=== PATIENT | female | born 1935 | race Caucasian/White ===

== ENCOUNTER 2017-08-08 08:00 | Outpatient (CLI) | payer MEDICARE, BC | END 2017-08-08 08:01 | disposition home or self-care (01) | LOC: BICULT 08:00 | PROVIDERS: ATTEND Internal Medicine | DX: G45.9 Transient cerebral ischemic attack, unspecified (principal); M25.552 Pain in left hip; M16.12 Unilateral primary osteoarthritis, left hip ==

== ENCOUNTER 2017-09-25 13:48 | Outpatient (CLI) | payer MEDICARE, BC ==
--- NOTE | 2017-09-25 14:56 | MRI ---
MRI BRAIN WITHOUT CONTRAST: Date: 09/25/17 HISTORY: TIA. FINDINGS: No restricted diffusion is seen. No evidence of infarct, hemorrhage, midline shift, or abnormal extra -axial fluid collections are seen. The ventricular size is appropriate and the basilar cisterns are p atent. The visualized paranasal sinuses are well aerated. There is a small amount of fluid in the rig ht mastoid air cells. IMPRESSION: No evidence of acute intracranial process. POS: [facility]
[2017-09-25] MEDS ORDERED: Iopamidol 370 76% 100 ML VIAL ONE (16:56)
--- NOTE | 2017-09-25 18:25 | CT ---
EXAM: CT ANGIOGRAM OF THE NECK 09/25/17 HISTORY: Possible transient ischemic attack. COMPARISON: None. TECHNIQUE: CT angiogram of the neck is performed in the axial plane. Sagittal and coronal three dimensional refo rmatted images are submitted for interpretation. FINDINGS: Visualized brain parenchyma is unremarkable. Bilateral ocular lens implants are noted. Both globes ar e intact. Retrobulbar fat is preserved. Symmetric attenuation of the visualized ocular rectus muscles . Adequate aeration of the sinuses and mastoid air cells. Aerodigestive tract is patent. No mucosal abnormality. Limited evaluation of the oral cavity due to d ental amalgam artifact. Midline fatty raphae of the tongue is preserved. There is mild fullness of th e lingual tonsils. Correlate for lingual tonsillar hypertrophy. Direct visualization is recommended. Epiglottis has a normal caliber. Pre-epiglottic fat is preserved. No prevertebral soft tissue swellin g. Cervical spine vertebral body height is maintained. No fracture. There is grade I anterolisthesis of C4 upon C5, grade I retrolisthesis of C5 upon C6. Cervical spine vertebral body height is maintained. No fracture. There are varying degrees of central canal stenosis and foraminal narrowing on the basi s of degenerative change. There is symmetric attenuation of the sternocleidomastoid muscles. Symmetric attenuation of the parot id and submandibular glands. No evidence of lymphadenopathy by size criteria. Upper mediastinum is unremarkable. There are focal areas of ground glass opacification in both upper lobes, nonspecific. There is an ill-defined slightly spiculated opacity on the posterior aspect of th e left upper lobe, measuring [address] ANGIOGRAM: There is atherosclerosis of the aortic arch. RIGHT CAROTID: There is atherosclerosis with mild to moderate narrowing of the origin of the right carotid artery. T he innominate artery has appropriate enhancement and luminal diameter. The right common carotid arter y, carotid bifurcation and internal carotid artery have appropriate enhancement and luminal diameter. There is a small amount of calcified plaque in the right carotid bifurcation. No evidence of signifi cant stenosis based upon NASCET criteria. LEFT CAROTID: There is atherosclerotic disease with what appears to be short segment severe narrowing at the origin of the left carotid artery. The left common carotid artery has appropriate enhancement and luminal d iameter. There are calcified and noncalcified plaque in the left carotid bifurcation. No evidence of significant stenosis based upon NASCET criteria. The proximal mid and distal left internal carotid chapman ve appropriate enhancement and luminal diameter. Right vertebral artery is unremarkable. There is short segment moderate to severe stenosis involving the proximal left subclavian artery. If there is concern for steal phenomenon, consider MR angiogram of the neck. IMPRESSION: 1. Atherosclerosis without evidence of hemodynamically significant stenosis based upon NASCET cr iteria in both carotid arteries. 2. Atherosclerosis involving the proximal left subclavian artery. If there is concern for steal phenomenon consider MR angiogram of the neck with and without contrast. 3. Spiculated ground glass nodule in the left upper lobe. A complete chest CT is recommended. Code T POS: [facility]
== END 2017-09-25 13:49 | disposition home or self-care (01) ==
LOC: CT 13:48
PROVIDERS: ATTEND Psychiatry & Neurology Neurology
DX: G45.9 Transient cerebral ischemic attack, unspecified (principal); I65.23 Occlusion and stenosis of bilateral carotid arteries; I70.8 Atherosclerosis of other arteries; R91.1 Solitary pulmonary nodule
CPT/HCPCS: 70498; 70551

== ENCOUNTER 2017-10-15 08:45 | Inpatient (IN) | payer MEDICARE, BC ==
[2017-10-22 09:00] VITALS: BMI 26.9
[2017-10-28] MEDS ORDERED: traMADol HCl 50 MG TAB PO PRN ×3 (09:21→11:30)
[2017-10-28] MEDS ORDERED: Acetaminophen 325 MG TAB PO PRN (09:21)
[2017-10-28] MEDS ORDERED: Ondansetron HCl/PF 4 MG/2 ML Vial IVP PRN ×3 (09:21→13:29)
[2017-10-28] MEDS ORDERED: Tranexamic Acid 1,000 MG in Sodium Chloride 0.9% 100 ML IVPB SCH ×2 (09:30→14:30)
[2017-10-28] MEDS ORDERED: Acetaminophen 1,000 MG in Premix Bag 1 BAG IVPB SCH (09:30)
[2017-10-28] MEDS ORDERED: CEFAZOLIN/Water 2 GM/20 ML SYRINGE ONE (10:30)
[2017-10-28] MEDS ORDERED: Midazolam HCl 2 mg/2 ml Vial ONE (11:12)
[2017-10-28] MEDS ORDERED: Morphine 2 MG/ML SYRINGE ONE (11:13)
[2017-10-28] MEDS ORDERED: fentaNYL Citrate/PF 1,250 MCG, Bupivacaine 25 ML in Sodium Chloride 0.9% 250 ML 200 ML EPIDURAL SCH (11:30)
[2017-10-28] MEDS ORDERED: Hydrocerin (Eucerin) Cream 120 gm Jar TOP PRN (11:30)
[2017-10-28] MEDS ORDERED: Promethazine HCl 25 MG/ML VIAL IM PRN ×2 (11:30→13:29)
[2017-10-28] MEDS ORDERED: Zolpidem Tartrate 5 MG TAB PO PRN (11:30)
[2017-10-28] MEDS ORDERED: diphenhydrAMINE 50 MG/ML VIAL IVP PRN (11:30)
[2017-10-28] MEDS ORDERED: Promethazine HCl 25 MG SUPP PR PRN (11:30)
[2017-10-28] MEDS ORDERED: Naloxone HCl 0.4 mg/ml Vial IVP PRN (11:30)
[2017-10-28] MEDS ORDERED: Naloxone HCl 0.4 mg/ml Vial IV PRN (11:30)
[2017-10-28] MEDS ORDERED: diphenhydrAMINE 50 MG/ML VIAL IM PRN (11:30)
[2017-10-28] MEDS ORDERED: diphenhydrAMINE 25 MG CAP PO PRN (11:30)
[2017-10-28] MEDS ORDERED: Bupivacaine 0.25% 10 ML VIAL EPIDURAL PRN (11:30)
[2017-10-28] MEDS ORDERED: HYDROcodone/Acetaminophen 5/325 mg Tablet PO PRN (11:30)
[2017-10-28] MEDS ORDERED: Ketorolac Tromethamine 30 MG/ML VIAL IVP PRN (11:30)
[2017-10-28] MEDS ORDERED: Neomycin-Polymyxin 1 ML AMP ONE (12:04)
[2017-10-28] MEDS ORDERED: Bupivacaine/Epinephrine 0.25% 30 ML VIAL ONE (12:19)
[2017-10-28] MEDS ORDERED: Promethazine HCl 25 MG/ML VIAL SLOW IVP PRN (13:29)
[2017-10-28] MEDS ORDERED: Acetaminophen 500 MG TAB PO PRN (14:29)
[2017-10-28] MEDS ORDERED: Morphine 4 MG/ML VIAL ONE (14:49)
--- NOTE | 2017-10-28 15:19 | RAD ---
PORTABLE AP PELVIS: Date: 10-28-17 Comparison: None. History: Post left hip prosthesis. FINDINGS: Left total hip prosthesis is noted in place. There are post-surgical changes related to placement of a left total hip prosthesis. Subcutaneous emphysema is seen about the left hip. No fracture or disloc ation is seen. IMPRESSION: Evidence of right total hip prosthesis with post-surgical changes related to placement of left total hip prosthesis. POS: [facility]
[2017-10-28] MEDS ORDERED: PHENYLEPHRINE-NS 100 MCG/ML 10 ML SYRINGE ONE ×2 (15:21→16:10)
[2017-10-28] MEDS ORDERED: Propofol 200 MG/20 ML VIAL ONE (15:21)
[2017-10-28] MEDS ORDERED: Lidocaine 1% PF 5 ML VIAL ONE (15:21)
[2017-10-28] MEDS ORDERED: Ondansetron HCl/PF 4 MG/2 ML Vial ONE (15:21)
--- NOTE | 2017-10-28 15:58 | RAD ---
TWO VIEWS LEFT HIP: History: Left hip arthroplasty. Comparison: 10-28-17 at 1:23 p.m. FINDINGS: Two views of the left hip demonstrate a left hip arthroplasty. Post-operative changes are noted. IMPRESSION: Post-surgical changes. POS: [facility]
[2017-10-28] MEDS ORDERED: CEFAZOLIN/Water 2 GM/20 ML SYRINGE SLOW IVP SCH (16:00)
[2017-10-28] MEDS ORDERED: PHENYLEPHRINE-NS 100 MCG/ML 10 ML SYRINGE IVP PRN (16:36)
[2017-10-28] MEDS: Sodium Chloride 0.9% 1,000 ML IV SCH (20:30)
[2017-10-28] MEDS: CEFAZOLIN/Water 2 GM/20 ML SYRINGE SLOW IVP SCH (21:00)
[2017-10-28] MEDS: Nitrofurantoin Monohyd/M-Cryst 100 MG CAP PO SCH (21:01)
[2017-10-28] MEDS: Aspirin 325 MG TAB PO SCH (21:34)
[2017-10-29] MEDS: HYDROcodone/Acetaminophen 5/325 mg Tablet PO PRN ×3 (02:00→20:38)
[2017-10-29] MEDS: Sodium Chloride 0.9% 1,000 ML IV SCH ×2 (04:37→16:44)
[2017-10-29] MEDS: CEFAZOLIN/Water 2 GM/20 ML SYRINGE SLOW IVP SCH (05:00)
[2017-10-29 05:59] LABS: Hemoglobin 9.9 g/dL (12.0-16.0); Mean Corpuscular HGB CONC 33.5 g/dL (32.0-36.0); Mean Corpuscular Hemoglobin 31.6 pg (27.0-31.0); Mean Corpuscular Volume 94.3 fl (81.0-99.0); Mean Platelet Volume 6.3 fL (7.4-10.4); Platelet Count 296 thou/uL (130-400); RBC Distribution Width 11.9 % (11.5-14.5); Red Blood Cell (RBC) Count 3.13 mill/uL (4.20-5.40); White Blood Cell (WBC) Count 10.7 thou/uL (4.8-10.8)
[2017-10-29] MEDS: Ferrous Gluconate 324 MG TAB PO SCH ×2 (08:12→20:38)
[2017-10-29] MEDS: Multivitamin W/ Minerals 1 TAB PO SCH (08:12)
[2017-10-29] MEDS: Calcium Carbonate + Vit D 1 TAB PO SCH (08:12)
[2017-10-29] MEDS: Nitrofurantoin Monohyd/M-Cryst 100 MG CAP PO SCH (08:12)
[2017-10-29] MEDS: Metamucil PACK PO SCH (08:13)
[2017-10-29] MEDS: Senokot S 8.6-50 MG TAB PO SCH ×2 (08:13→20:38)
[2017-10-29] MEDS: Aspirin 325 MG TAB PO SCH ×2 (08:13→20:38)
[2017-10-29] MEDS ORDERED: Non-Formulary Item 1 EACH (Multivitamin [Multi-Vitamin Daily] 1 TABLET) PO SCH (09:00)
[2017-10-29] MEDS ORDERED: Cranberry [Cranberry] 400 MG PO SCH (09:00)
[2017-10-29] MEDS ORDERED: hydrALAZINE 20 MG/ML VIAL SLOW IVP PRN (09:58)
[2017-10-29] MEDS ORDERED: cloNIDine 0.1 MG TAB PO PRN (09:58)
[2017-10-29] MEDS ORDERED: Famotidine 20 MG TAB PO SCH (10:45)
--- NOTE | 2017-10-29 11:10 | OP ---
DATE OF PROCEDURE: 10/28/2017 PREOPERATIVE DIAGNOSIS: Left hip osteoarthrosis. POSTOPERATIVE DIAGNOSIS: Left hip osteoarthrosis. PROCEDURE PERFORMED: Left total hip arthroplasty. ANESTHESIA: General. SURGEON: Lito Ríos M.D. COMPLICATIONS: None. CONDITION: Good. ESTIMATED BLOOD LOSS: 300 mL. DRAINS: None. TOURNIQUET: None. TECHNIQUE: Consent was obtained. The patient was taken to the operating room and placed in supine p osition. After adequate general anesthesia had been achieved, the patient's left hip and lower extre mity were positioned and prepped and draped in the sterile fashion. The patient had an axillary roll and hip positioner left hip had minor restriction of motion. The limited posterolateral approach wa s obtained taken down to subcutaneous tissue exposing gluteal fascia. This was split longitudinally. Piriformis was identified the insertion and released. A posterior capsular incision was made and t he hip dislocated without difficulty. Appropriate resection was performed and the femur prepared wit h sequential hand reamers and broaches up to a size 3. The acetabulum was exposed. Labral tissue wa s resected in an accessory lateral portal and was established with a cannula. Sequential reaming was started at 47 mm, was taken up to 52 mm and a 52 mm Dynasty cup was placed in appropriate position a nd alignment and with single superior screw, excellent purchase was achieved. It was then trialed wi th the 15 degree liner, the short neck and standard 36 head. The patient had excellent range of yousuf on, good stability, no evidence of impingement, full flexion, extension and abduction internal rotati on stability. Radiographs showed acceptable position and alignment of the implants and the 15-degree liner was then placed, the size 3 Profemur Z stem inserted and again trialed with the 36 standard head and 36 was c hosen after drying the tapers and impacted. Again, range of motion, stability, and leg lengths clini sury equal. After copious irrigation, the posterior capsule was repaired with #2 Mersilene along wi th the piriformis. The gluteal fascia and IT band was closed with some #2 Mersilene, #1 Vicryl, subc u with 0 and 2-0 Vicryl, and the skin with diomedes. Sterile bulky dressing applied and patient taken to recovery. Prognosis is good. Begin rehab protocol.
--- NOTE | 2017-10-29 15:07 | PDOC.PN ---
- Subjective Encounter Start Date: 10/29/17 Encounter Start Time: 15:04 Subjective: s/p Left Total hip arthroplasty -: denies any pain/discomfort.no N/V/D.no CP/SOB -: no Fever/chills - Objective MAR Reviewed: Yes Vital Signs & Weight: Vital Signs (12 hours) Temp Pulse Resp BP Pulse Ox 10/29/17 11:32 97.9 F 99 16 106/64 95 10/29/17 08:15 98.0 F 99 16 145/64 H 95 10/29/17 08:00 98.0 F 99 16 95 10/29/17 05:00 98.4 F 111 H 16 143/59 H Weight Admit Weight 157 lb Weight 157 lb I&O: 10/28/17 10/29/17 10/30/17 06:59 06:59 06:59 Intake Total 2248 250 Output Total 700 Balance 1548 250 Result Diagrams: 10/29/17 05:15 Additional Labs: Laboratory Tests 10/22/17 10/22/17 10/29/17 09:25 09:25 05:15 Hgb 12.5 9.9 L Sodium 132 L Potassium 4.4 Chloride 98 Carbon Dioxide 26 Anion Gap 12 BUN 19 Creatinine 0.82 Glucose 90 Calcium 9.8 Phys Exam - Physical Examination Constitutional: NAD HEENT: PERRLA, moist MMs, sclera anicteric, oral pharynx no lesions Neck: no nodes, no JVD, supple, full ROM Respiratory: no wheezing, no rales, no rhonchi, clear to auscultation bilateral Cardiovascular: RRR, no significant murmur, no rub, gallop Gastrointestinal: soft, non-tender, no distention, positive bowel sounds Musculoskeletal: no edema, pulses present Neurological: non-focal, normal sensation, moves all 4 limbs Lymphatic: no nodes Psychiatric: normal affect, A&O x 3 Skin: no rash Dx/Plan (1) HTN (hypertension) Code(s): I10 - ESSENTIAL (PRIMARY) HYPERTENSION Status: Acute (2) S/P total hip arthroplasty Code(s): Z96.649 - PRESENCE OF UNSPECIFIED ARTIFICIAL HIP JOINT Status: Acute (3) Carotid arterial disease Code(s): I77.9 - DISORDER OF ARTERIES AND ARTERIOLES, UNSPECIFIED Status: Acute Comment: Daily ASA (4) Postoperative anemia Code(s): D64.9 - ANEMIA, UNSPECIFIED Status: Acute - Plan PT/OT, out of bed/ambulate, DVT proph w/SCDs cont ASA BID for DVt prophylaxis. Add pepcid for GI prophylaxis. -: ont Lisinopril/HCTZ. BP controlled fairly well. Add Prn anti hypertensives -: Pt is done w Macrodantin.will stop & recheck UA -: AM labs. Monitor for post-op anemia * . Review of Systems - Review of Systems Constitutional: negative: fever, chills, sweats, weakness, malaise, other Eyes: negative: Pain, Vision Change, Conjunctivae Inflammation, Eyelid Inflammation, Redness, Other ENT: negative: Ear Pain, Ear Discharge, Nose Pain, Nose Discharge, Nose Congestion, Mouth Pain, Mouth Swelling, Throat Pain, Throat Swelling, Other Respiratory: negative: Cough, Dry, Shortness of Breath, Hemoptysis, SOB with Excertion, Pleuritic Pain, Sputum, Wheezing Cardiovascular: negative: chest pain, palpitations, orthopnea, paroxysmal nocturnal dyspnea, edema, light headedness, other Gastrointestinal: negative: Nausea, Vomiting, Abdominal Pain, Diarrhea, Constipation, Melena, Hematochezia, Other Genitourinary: negative: Dysuria, Frequency, Incontinence, Hematuria, Retention , Other Musculoskeletal: negative: Neck Pain, Shoulder Pain, Arm Pain, Back Pain, Hand Pain, Leg Pain, Foot Pain, Other Skin: negative: Rash, Lesions, Omari, Bruising, Other Neurological: negative: Weakness, Numbness, Incoordination, Change in Speech, Confusion, Seizures, Other - Medications/Allergies Allergies/Adverse Reactions: Allergies Allergy/AdvReac Type Severity Reaction Status Date / Time codeine Allergy "feel Verified 10/29/17 03:59 drunk" Medications: Current Medications Acetaminophen (Tylenol) 650 mg PO Q4H PRN PRN Reason: HOLLY/ T > 101F; Mild Pain (1-3) Acetaminophen (Tylenol) 1,000 mg PO Q6HR PRN PRN Reason: Pain Hydrocodone Bitart/Acetaminophen ([place] 5/325) 1 tab PO Q4H PRN PRN Reason: Mild Pain 0-3 Hydrocodone Bitart/Acetaminophen ([place] 5/325) 2 tab PO Q4H PRN PRN Reason: For Moderate Pain 4-6 Last Admin: 10/29/17 06:05 Dose: 2 tab Aspirin (Aspirin) 325 mg PO BID [facility] Last Admin: 10/29/17 08:13 Dose: 325 mg Calcium/Vitamin D (Caltrate 600 + Vit D) 1 tab PO DAILY [facility] Last Admin: 10/29/17 08:12 Dose: 1 tab Clonidine (Catapres) 0.1 mg PO Q4H PRN PRN Reason: SBP>160 Diclofenac Sodium (Voltaren) 100 mg PO QAM [facility] Last Admin: 10/29/17 08:12 Dose: 100 mg Diphenhydramine HCl (Benadryl) 25 mg PO Q3H PRN PRN Reason: Itching Diphenhydramine HCl (Benadryl) 25 mg IM Q3H PRN PRN Reason: Itching Diphenhydramine HCl (Benadryl) 25 mg IVP Q3H PRN PRN Reason: Itching Emollient Cream (Hydrocerin Cream) 0 gm TOP PRN PRN PRN Reason: Itching Famotidine (Pepcid) 20 mg PO BID [facility] Ferrous Gluconate (Fergon) 324 mg PO BID [facility] Last Admin: 10/29/17 08:12 Dose: 324 mg Lisinopril/HCTZ (Prinizide 10-12.5) 1 tab PO [facility] Hydralazine HCl (Apresoline) 10 mg SLOW IVP Q4H PRN PRN Reason: SBP>170 Sodium Chloride (Normal Saline 0.9%) 1,000 mls @ 100 mls/hr IV .Q10H [facility] Last Admin: 10/29/17 04:37 Dose: Not Given Fentanyl Citrate 1,250 mcg/Bupivacaine HCl 25 ml/ Sodium Chloride 250 mls @ 0 mls/hr EPIDURAL INF [facility] PRN Reason: As Directed Iron/Minerals/Multivitamins (Theragran M) 1 tab PO DAILY [facility] Last Admin: 10/29/17 08:12 Dose: 1 tab Ketorolac Tromethamine (Toradol) 15 mg IVP Q6H PRN PRN Reason: Moderate Pain (4-6) Stop: 10/31/17 11:31 Naloxone HCl (Narcan) 0.2 mg IV Q5MIN PRN PRN Reason: RR <=8 OR OBTUNDED/UNAROUSABLE Naloxone HCl (Narcan) 0.1 mg IVP Q15MIN PRN PRN Reason: URINARY RETENTION Ondansetron HCl (Zofran) 4 mg IVP Q6H PRN PRN Reason: Nausea/Vomiting Cranberry [Cranberry (] 400 Mg) 0 each PO DAILY [facility] Phenylephrine HCl (Phenylephrine-Ns) 100 mcg IVP Q10MIN PRN PRN Reason: SBP Less Than 100 Promethazine HCl (Phenergan) 12.5 mg IM Q4H PRN PRN Reason: Nausea Promethazine HCl (Phenergan Suppository) 25 mg PA Q4H PRN PRN Reason: Nausea/Vomiting Psyllium Hydrophilic Mucilloid (Metamucil) 1 pk PO DAILY [facility] Last Admin: 10/29/17 08:13 Dose: 1 pk Senna/Docusate Sodium (Senokot S) 2 tab PO BID [facility] Last Admin: 10/29/17 08:13 Dose: 2 tab Sodium Chloride (Flush - Normal Saline) 10 ml IVF PRN PRN PRN Reason: Saline Flush Tramadol HCl (Ultram) 50 mg PO Q6H PRN PRN Reason: Mild Pain 1-3 Tramadol HCl (Ultram) 100 mg PO Q6H PRN PRN Reason: Moderate Pain 4-6 Zolpidem Tartrate (Ambien) 5 mg PO HSPRN PRN PRN Reason: Insomnia
[2017-10-29] MEDS: Lisinopril/Hydrochlorothiazide 10 mg/12.5 mg Tablet PO SCH (16:44)
[2017-10-29] MEDS: Aspirin 81 mg Enteric Coated Tablet PO SCH (17:41)
[2017-10-29 18:42] LABS: Bilirubin Negative (Negative); Blood, Urine Trace (Negative); Clarity CLEAR (Clear); Glucose, Urine (Dipstick) 250 mg/dL (Negative); Leukocyte Negative (Negative); Nitrite Negative (Negative); Protein, Urine (Dipstick) Negative (Neg-Trace); Specific Gravity, Urine 1.019 (1.002-1.036); Urobilinogen 0.2 mg/dL (0.2-1.0); pH, Urine 6.5 (5.0-9.0)
[2017-10-29 18:43] LABS: Bacteria/HPF Rare-Few HPF (None Seen); Hyaline Casts/LPF 0-3 HYALINE CAST LPF (0-3 Hyaline); Squamous Epithelial 0-3 HPF (0-3)
[2017-10-29] MEDS: Famotidine 20 MG TAB PO SCH (20:38)
[2017-10-30] MEDS: Sodium Chloride 0.9% 1,000 ML IV SCH (01:58)
[2017-10-30 04:24] LABS: #Eosinphils 0.5 thou/uL (0.0-0.7); #Lymphocytes 1.5 thou/uL (1.20-3.40); #Monocytes 0.9 thou/uL (0.11-0.59); #Neutrophils 7.3 thou/uL (1.40-6.50); %Basophils 0.3 % (0.0-1.0); %Lymphocytes 14.7 % (21.0-51.0); %Monocytes 8.4 % (0.0-10.0); %Neutrophils 71.6 % (42.0-75.0); Hemoglobin 9.1 g/dL (12.0-16.0); Mean Corpuscular HGB CONC 33.8 g/dL (32.0-36.0); Mean Corpuscular Hemoglobin 31.8 pg (27.0-31.0); Mean Corpuscular Volume 94.1 fl (81.0-99.0); Mean Platelet Volume 6.7 fL (7.4-10.4); Platelet Count 262 thou/uL (130-400); Red Blood Cell (RBC) Count 2.87 mill/uL (4.20-5.40); White Blood Cell (WBC) Count 10.1 thou/uL (4.8-10.8)
[2017-10-30 04:32] LABS: ALT (SGPT) 16 U/L (8-55); AST (SGOT) 23 U/L (5-34); Albumin 3.1 g/dL (3.4-4.8); Alkaline Phosphatase 73 U/L (40-150); Anion Gap 8 mmol/L (10-20); BUN (Urea Nitrogen) 16 mg/dL (9.8-20.1); Bilirubin, Total 0.3 mg/dL (0.2-1.2); Calc. Creatinine Clearance 65 mL/min (70-130); Calcium 8.6 mg/dL (7.8-10.44); Carbon Dioxide 26 mmol/L (23-31); Chloride 104 mmol/L (98-107); Estimated GFR-MDRD 73; Globulin 2.3 g/dL (2.4-3.5); Glucose 119 mg/dL (83-110); Potassium 3.7 mmol/L (3.5-5.1); Protein, Total 5.4 g/dL (6.0-8.3); Sodium 134 mmol/L (136-145)
[2017-10-30 08:30] VITALS: TEMP 97.9
[2017-10-30] MEDS: Ferrous Gluconate 324 MG TAB PO SCH (08:38)
[2017-10-30] MEDS: Aspirin 325 MG TAB PO SCH (08:38)
[2017-10-30] MEDS: Multivitamin W/ Minerals 1 TAB PO SCH (08:38)
[2017-10-30] MEDS: Metamucil PACK PO SCH (08:39)
[2017-10-30] MEDS: Famotidine 20 MG TAB PO SCH (08:39)
[2017-10-30] MEDS: Senokot S 8.6-50 MG TAB PO SCH (08:39)
[2017-10-30] MEDS: Calcium Carbonate + Vit D 1 TAB PO SCH (08:39)
[2017-10-30] MEDS: Lisinopril/Hydrochlorothiazide 10 mg/12.5 mg Tablet PO SCH (08:39)
[2017-10-30 12:49] VITALS: BP 137/66
== END 2017-10-30 11:48 | disposition home or self-care (01) | DRG 470 ==
LOC: SURG A 10-28 09:18 → SJJU 10-28 18:51
PROVIDERS: ADMIT Orthopaedic Surgery; ATTEND Orthopaedic Surgery
PROC: 0SRB01Z Replacement of Left Hip Joint with Metal Synthetic Substitute, Open Approach (ICD-10-PCS; principal; 2017-10-28)
DX: M16.12 Unilateral primary osteoarthritis, left hip (principal); D64.9 Anemia, unspecified; I10 Essential (primary) hypertension; I77.9 Disorder of arteries and arterioles, unspecified; E78.5 Hyperlipidemia, unspecified; Z86.73 Personal history of transient ischemic attack (TIA), and cerebral infarction without residual deficits; F17.210 Nicotine dependence, cigarettes, uncomplicated
CPT/HCPCS: 36415; 80053; 81003; 81015; 85027; C1776; G8978-GP-CL; G8979-GP-CI; G8987-GO-CJ; G8988-GO-CI; J2001; J2250; J2270; J2405; J2704; J3010; J3490; J7050

== ENCOUNTER 2017-10-22 08:39 | Outpatient (CLI) | payer MEDICARE, BC ==
[2017-10-22 10:53] LABS: Hemoglobin 12.5 g/dL (12.0-16.0); Mean Corpuscular HGB CONC 34.5 g/dL (32.0-36.0); Mean Corpuscular Volume 92.7 fl (81.0-99.0); Mean Platelet Volume 6.4 fL (7.4-10.4); Platelet Count 355 thou/uL (130-400); RBC Distribution Width 11.9 % (11.5-14.5); White Blood Cell (WBC) Count 9.1 thou/uL (4.8-10.8)
[2017-10-22 10:59] LABS: PTT 28.9 SEC (22.9-36.1); Prothrombin Time 13.2 SEC (12.0-14.7)
[2017-10-22 11:14] LABS: Anion Gap 12 mmol/L (10-20); BUN (Urea Nitrogen) 19 mg/dL (9.8-20.1); Calc. Creatinine Clearance 0 mL/min (70-130); Calcium 9.8 mg/dL (7.8-10.44); Carbon Dioxide 26 mmol/L (23-31); Chloride 98 mmol/L (98-107); Estimated GFR-MDRD 67; Glucose 90 mg/dL (83-110); Potassium 4.4 mmol/L (3.5-5.1); Sodium 132 mmol/L (136-145)
== END 2017-10-22 08:40 | disposition home or self-care (01) ==
LOC: LABBT 08:39
PROVIDERS: ATTEND Orthopaedic Surgery
DX: Z01.818 Encounter for other preprocedural examination (principal); M16.12 Unilateral primary osteoarthritis, left hip
CPT/HCPCS: 80048; 85027; 85610; 85730; 86850; 86900; 86901; 87081; 93005; 93010

== ENCOUNTER 2018-01-21 12:51 | Outpatient (CLI) | payer MEDICARE, BC ==
[~2018-01-21 12:51] MED LIST: Iopamidol 370 76% 100 ML VIAL ONE
== END 2018-01-21 12:52 | disposition home or self-care (01) ==
LOC: BICCT 12:51
PROVIDERS: ATTEND Internal Medicine
DX: R91.8 Other nonspecific abnormal finding of lung field (principal); J44.9 Chronic obstructive pulmonary disease, unspecified; K44.9 Diaphragmatic hernia without obstruction or gangrene; I77.1 Stricture of artery; I70.8 Atherosclerosis of other arteries
CPT/HCPCS: 71260; 82565

== ENCOUNTER 2018-01-21 13:24 | Outpatient (CLI) | payer MEDICARE, BC | END 2018-01-21 13:25 | disposition home or self-care (01) | LOC: BICMAMMO 13:24 | PROVIDERS: ATTEND Internal Medicine | DX: Z12.31 Encounter for screening mammogram for malignant neoplasm of breast (principal); Z13.820 Encounter for screening for osteoporosis; R92.1 Mammographic calcification found on diagnostic imaging of breast; Z80.3 Family history of malignant neoplasm of breast; Z85.89 Personal history of malignant neoplasm of other organs and systems | CPT/HCPCS: 77063; 77067; 77080 ==

== ENCOUNTER 2018-04-04 07:24 | Outpatient (CLI) | payer MEDICARE, BC ==
[2018-04-04] MEDS ORDERED: ISOVUE-370 76%-LOCM 1 ML ONE (13:29)
== END 2018-04-04 07:25 | disposition home or self-care (01) ==
LOC: BICCT 07:24
PROVIDERS: ATTEND Internal Medicine Gastroenterology
DX: D64.9 Anemia, unspecified (principal); R10.84 Generalized abdominal pain; R11.2 Nausea with vomiting, unspecified; R19.7 Diarrhea, unspecified; I70.0 Atherosclerosis of aorta; N20.0 Calculus of kidney; M47.896 Other spondylosis, lumbar region; R19.09 Other intra-abdominal and pelvic swelling, mass and lump; Z96.643 Presence of artificial hip joint, bilateral
CPT/HCPCS: 74177

== ENCOUNTER 2019-02-23 10:33 | Outpatient (CLI) | payer MEDICARE, BC ==
--- NOTE | 2019-02-23 11:54 | MMO ---
Bilateral MAMMO Bilat Screen [facility]. CLINICAL HISTORY: Patient is 83 years old and is seen for screening. The patient has the following family history of breast cancer: sister, 60'S. The patient has no personal history of cancer. VIEWS: The views performed were: bilateral craniocaudal with tomosynthesis and bilateral mediolateral oblique with tomosynthesis. FILMS COMPARED: The present examination has been compared to prior imaging studies performed at [facility] on 10/19/2014, 10/28/2015, 10/30/2016 and 01/21/2018. MAMMOGRAM FINDINGS: There are scattered fibroglandular densities. Benign calcifications are noted bilaterally. There is a new mass in the left lower inner breast. In the right breast, there are no suspicious masses, calcifications or areas of architectural distortion. IMPRESSION: FINDING IN THE LEFT BREAST REQUIRES ADDITIONAL EVALUATION. AN ULTRASOUND EXAM IS RECOMMENDED. THE RESULTS OF THIS EXAM WERE SENT TO THE PATIENT. ACR BI-RADS Category 0 - Incomplete: Need additional imaging evaluation. [facility] will notify the patient of the need for additional imaging services. MAMMOGRAPHY NOTE: 1. A negative mammogram report should not delay a biopsy if a dominant of clinically suspicious mass is present. 2. Approximately 10% to 15% of breast cancers are not detected by mammography. 3. Adenosis and dense breasts may obscure an underlying neoplasm. Reported by: GARIMA ANNE MD Electonically Signed: [id number]
--- NOTE | 2019-02-23 13:39 | CT ---
CT CHEST WITH IV CONTRAST: HISTORY: Followup nodule, cough. COMPARISON: 01/21/2018. FINDINGS: The tiny hazy opacity with central scarring in the left apex is stable. The focal area of ground-gla ss opacity in the right upper lobe is also unchanged. Tiny nodules in the anterolateral aspect of the right upper lobe peripherally measuring up to 5 mm re main stable. A focal density in the lateral segment of the lingula is unchanged. No pleural or pericardial effusions are seen. The cystic mass in the right pericardiac region is sta ble. There are degenerative changes in the spine. The small hiatal hernia is stable. There is hydronephrosis of the chest in the visualized portions of the right kidney. IMPRESSION: 1. Stable CT scan of the chest. Followup is recommended in 6 months. 2. A renal ultrasound should be performed. POS: OFF
[2019-02-23] MEDS ORDERED: ISOVUE-370 76%-LOCM 1 ML ONE (13:43)
== END 2019-02-23 10:34 | disposition home or self-care (01) ==
LOC: BICMAMMO 10:33
PROVIDERS: ATTEND Internal Medicine
DX: Z12.31 Encounter for screening mammogram for malignant neoplasm of breast (principal); R93.89 Abnormal findings on diagnostic imaging of other specified body structures; Z80.3 Family history of malignant neoplasm of breast
CPT/HCPCS: 71260; 77063; 77067; Q9966

== ENCOUNTER 2019-03-04 10:52 | Outpatient (CLI) | payer MEDICARE, BC ==
--- NOTE | 2019-03-04 12:21 | ULT ---
LEFT BREAST ULTRASOUND: Date: 03/04/19 HISTORY: Abnormal mammogram. FINDINGS: Sonographic evaluation of the left lower inner breast demonstrates a 7.0 mm cyst at the 8 o'clock pos ition, corresponding to the mammographic abnormality. IMPRESSION: BI-RADS Category 2 - Benign findings. Return to annual mammographic screening. POS: OFF
== END 2019-03-04 10:53 | disposition home or self-care (01) ==
LOC: BICULT 10:52
PROVIDERS: ATTEND Internal Medicine
DX: N63.20 Unspecified lump in the left breast, unspecified quadrant (principal)

== ENCOUNTER 2019-03-25 10:05 | Outpatient (CLI) | payer MEDICARE, BC ==
--- NOTE | 2019-03-25 11:00 | ULT ---
RENAL ULTRASOUND: INDICATION: Right hydronephrosis. FINDINGS: There is moderate right hydronephrosis. Right kidney is measured at 10 cm length. The left kidney measures 10 cm length is unremarkable. The bladder is mildly distended. There is bladder wall thickening. There is an echogenic calculus i n the base of the bladder on the right. Ureteral jets were visualized with ultrasound. IMPRESSION: Moderate to severe right hydronephrosis. Echogenic focus in the bladder suggested bladder calculus. Bladder wall thickening. POS: [facility]
== END 2019-03-25 10:06 | disposition home or self-care (01) ==
LOC: BICULT 10:05
PROVIDERS: ATTEND Internal Medicine
DX: N13.30 Unspecified hydronephrosis (principal); N32.89 Other specified disorders of bladder
CPT/HCPCS: 76770

== ENCOUNTER 2019-04-28 08:21 | Outpatient (CLI) | payer MEDICARE, BC ==
--- NOTE | 2019-04-28 12:53 | CT ---
CT ABDOMEN AND PELVIS WITH AND WITHOUT CONTRAST: CT UROGRAM: 04/28/2019 HISTORY: Microscopic hematuria. Right-sided hydronephrosis. COMPARISON: CT abdomen and pelvis from 04/04/2018. TECHNIQUE: Axial CT imaging obtained at 3 mm intervals, from the lung bases through the pubic symphysis, with an d without IV contrast using CT urogram protocol. Coronal and sagittal reformatted imaging obtained. FINDINGS: There is a stable, lobulated, cystic, nonenhancing lesion in the region of the anterior right cardiop hrenic angle, measuring 5.1 cm in transverse dimension, unchanged when compared to the 04/04/2018 exa mination. Coronary arterial calcification and mitral annulus calcification noted. The imaged lung bases are unremarkable. No free intraperitoneal air or fluid is seen. The liver, gallbladder, and spleen demonstrate no acute findings. The pancreas and adrenal glands appear grossly unremarkable. There is no hydronephrosis or evidence of obstructive uropathy noted on the left. The distal left ur eter is obscured by streak artifact from bilateral total hip prostheses. Linear areas of calcification in the left renal hilum are likely on the basis of vascular calcificati on. Urographic phase imaging of the left renal collecting system appears grossly unremarkable. There is prominent hydronephrosis and hydroureter on the right. This right-sided hydronephrosis and hydroureter has developed since the 04/04/2018 CT examination. There is a stable linear calcificatio n within the mid portion of the right kidney, suggesting a vascular calcification. The hydroureter demonstrates marked tortuosity on the right. Secondary to severe streak artifact fro m bilateral hip prostheses, the distal right ureter cannot be optimally assessed. Evaluation of the distal bowel within the pelvis is limited secondary to streak artifact as well. There is sigmoid diverticulosis without evidence for diverticulitis. There is a lobulated soft tissue mass in the right lower quadrant/right adnexal region, measuring jeri roximately 4.9 x 5.1 cm, similar when compared to the 04/04/2018 CT examination. There is severe atherosclerotic calcification of the abdominal aorta and its branches with probable m ultifocal severe stenosis of the abdominal aorta, especially in the infrarenal region. No lymphadenopathy is evident within the abdomen/pelvis. There is a small sliding type hiatal hernia . Review of the osseous structures demonstrates severe multilevel degenerative change within the lumbar spine with multilevel disk space narrowing, degenerative endplate change and osteophytosis. IMPRESSION: 1. There has been interval development of severe hydronephrosis and hydroureter on the right. The e tiology is uncertain on this examination, especially given the severe streak artifact within the pelv is, associated with bilateral hip prostheses, which completely obscures the distal right ureter. Thi s could potentially be on the basis of a distal obstructing stone, stricture or a mass lesion. 2. Nonspecific solid appearing soft tissue mass lesion in the right adnexal region, as before. This could represent an ovarian neoplastic process or potentially a large, atypical, exophytic uterine fi broid. Pelvic MRI may be beneficial but may be nondiagnostic secondary to artifact. 3. Severe atherosclerotic disease. 4. Stable cystic lesion at the level of the right cardiophrenic angle. CODE T POS: OFF
== END 2019-04-28 08:22 | disposition home or self-care (01) ==
LOC: BICCT 08:21
PROVIDERS: ATTEND Urology
DX: R31.29 Other microscopic hematuria (principal); N13.39 Other hydronephrosis; I70.90 Unspecified atherosclerosis; N28.89 Other specified disorders of kidney and ureter
CPT/HCPCS: 74178; 82565

== ENCOUNTER → 2019-05-25 | Day surgery (SDC) | payer MEDICARE, BC ==
[2019-05-22 09:21] VITALS: BMI 26.1
[~2019-05-25] MED LIST changes: +B & O ONE; +Fentanyl 100 MCG/2 ML VIAL ONE; -Iopamidol 370 76% 100 ML VIAL ONE; +Iothalamate Meglumine 60% 50 ML VIAL FS ONE; +Sodium Chloride 0.9% 100 ML ONE; +cefTRIAXone\\ROCEPHIN 1 GM VIAL ONE
[2019-05-25 06:39] LABS: #Basophils 0.1 thou/uL (0.0-0.2); #Eosinphils 0.3 thou/uL (0.0-0.7); #Lymphocytes 2.3 thou/uL (1.20-3.40); #Monocytes 0.8 thou/uL (0.11-0.59); #Neutrophils 5.9 thou/uL (1.40-6.50); %Basophils 0.6 % (0.0-1.0); %Eosinophils 3.5 % (0.0-10.0); %Lymphocytes 24.3 % (21.0-51.0); %Monocytes 8.1 % (0.0-10.0); %Neutrophils 63.5 % (42.0-75.0); Hemoglobin 12.7 g/dL (12.0-16.0); Mean Corpuscular HGB CONC 34.9 g/dL (32.0-36.0); Mean Corpuscular Hemoglobin 32.2 pg (27.0-31.0); Mean Corpuscular Volume 92.2 fL (78.0-98.0); Mean Platelet Volume 6.8 fL (7.4-10.4); Platelet Count 320 thou/uL (130-400); RBC Distribution Width 11.5 % (11.5-14.5); Red Blood Cell (RBC) Count 3.93 mill/uL (4.20-5.40); White Blood Cell (WBC) Count 9.3 thou/uL (4.8-10.8)
[2019-05-25 06:51] LABS: INR-International Normal Ratio 0.9; PTT 28.8 SEC (22.9-36.1); Prothrombin Time 12.6 SEC (12.0-14.7)
[2019-05-25 06:59] LABS: Anion Gap 16 mmol/L (10-20); BUN (Urea Nitrogen) 21 mg/dL (9.8-20.1); Calc. Creatinine Clearance 32 mL/min (70-130); Calcium 9.8 mg/dL (7.8-10.44); Carbon Dioxide 23 mmol/L (23-31); Chloride 100 mmol/L (98-107); Estimated GFR-MDRD 33; Glucose 105 mg/dL (83-110); Potassium 4.6 mmol/L (3.5-5.1); Sodium 134 mmol/L (136-145)
--- NOTE | 2019-05-25 10:24 | RAD ---
INTRAOPERATIVE FLUOROSCOPY FOR RETROGRADE IVP: HISTORY: Stent placement. FINDINGS: Nineteen intraoperative fluoroscopic views demonstrate dilatation of the right ureter and right renal pelvis. There is evidence of a double J ureteral stent placed, appropriately positioned. IMPRESSION: Intraoperative fluoroscopy, as above. POS: [facility]
--- NOTE | 2019-05-25 14:47 | OP ---
DATE OF PROCEDURE: 05/25/2019 PREOPERATIVE DIAGNOSES: Right hydronephrosis and microscopic hematuria. POSTOPERATIVE DIAGNOSES: Right hydronephrosis and microscopic hematuria. PROCEDURES PERFORMED: Cystoscopy, right retrograde, right stent, transurethral resection of bladder tumour, and exam under anesthesia. ANESTHESIA: General. ESTIMATED BLOOD LOSS: Minimal. FINDINGS: She had right hydronephrosis down to the right ureterovesical junction. There was no stone seen. She had a very tortuous ureter. She had a 2 x 3 cm bladder tumor just lateral to the right ureteral orifice not involving the orifice itself, but most likely involving the intramural ureter. It appeared papillary on its surface, but its base and surrounding tissue by the right ureteral orifice was thick and indurated and very suspicious for cancer into the muscle wall here. We sent off 2 specimens superficial, which was just a bladder tumor, then deep, which also included the right ureteral orifice in order to get a good past report on this. Stent was placed, it was a 6 x 24 Polaris double-J stent. A string was not left on it. There was no other bladder tumor seen. Exam under anesthesia, felt a little thickening on the right side on bimanual exam. None on the left, still has a cervix and still has the uterus. She had, had what was probably an ovarian cystic lesion on her CAT scan that was not well seen because of streak artifact from her hips and I could not feel this on her exam. DESCRIPTION OF PROCEDURE: After obtained written and verbal consent from the patient, after receiving IV antibiotics, she was taken to the operating suite. She was placed in the supine position on the treatment table. PlexiPulses were placed on her lower extremities and turned on. She was given a general anesthetic and oral obturator intubation. She was placed in the dorsal lithotomy position. She was sterilely prepped and draped. Cystoscopy was performed with a 22-Somali sheath. This was well lubricated and passed under direct vision through the female urethra and into the bladder with the aid of a 30-degree lens and video camera and monitor. The bladder was examined and filled and emptied number of times as this was examined both with the 30-degree and the 70-degree lens. The findings were as above. Some photographs were taken. At this point, we brought in a 24-Somali resectoscope sheath with visual obturator was passed, well lubricated through the female urethra into the bladder with a 30-degree lens. An Mares resectoscope with a Gyrus bladder tumor loop and the Gyrus generator were used. We resected out the superficial portion of this tumor and then sent this pathology off. Then, we resected the deep portions that included resecting the right ureteral orifice. I was hoping to see efflux come out of this, but we were not able to see that. We obtained hemostasis with electrocautery unit. We then fed a guidewire up the ureter, added more contrast. We initially done a retrograde study on this side that just showed a dilated ureter coming down to the right ureterovesical junction and stopping there. We were able to fill up the remaining dilated tortuous ureter with the Pollack catheter that was placed over the guidewire, once it was placed through the ureter after resecting this region. We then were able to pass over this guidewire, a 6 x 24 Polaris double-J stent pushing it up into place with aid of a pusher. Once this was done, we did resect some more of the tissue lateral just a little lateral a little bit below the right ureteral orifice area that still appeared thickened and then cauterized all these areas. Bladder was drained. The instruments were removed. A bimanual exam was done. There was a little bit of thickening on this side still. No obvious three-dimensional mass. Mancuso catheter was then sterilely inserted and hooked up to drainage bag. She at this point was awakened, extubated, and taken by stretcher to recovery room. Job ID: [id number]
== END ==
LOC: SDC 05:47
PROVIDERS: ATTEND Urology
PROC: 0TBB8ZX Excision of Bladder, Via Natural or Artificial Opening Endoscopic, Diagnostic (ICD-10-PCS; principal; 2019-05-25)
PROC: 0T768DZ Dilation of Right Ureter with Intraluminal Device, Via Natural or Artificial Opening Endoscopic (ICD-10-PCS; 2019-05-25)
DX: C67.6 Malignant neoplasm of ureteric orifice (principal); N13.39 Other hydronephrosis; I10 Essential (primary) hypertension; K21.9 Gastro-esophageal reflux disease without esophagitis; K22.70 Barrett's esophagus without dysplasia; Z79.82 Long term (current) use of aspirin; Z79.899 Other long term (current) drug therapy; Z88.5 Allergy status to narcotic agent; Z88.8 Allergy status to other drugs, medicaments and biological substances
CPT/HCPCS: 36415; 74420; 80048; 85025; 85610; 85730; 88305; 88307; 88313; 88341; 88342; C1758; J0696; J3010; J3370; J3490

== ENCOUNTER 2019-06-02 11:04 | Outpatient (CLI) | payer MEDICARE, BC ==
--- NOTE | 2019-06-02 11:27 | RAD ---
EXAM: Chest PA and lateral: HISTORY: Cough COMPARISON: Reason CT 04/28/2019. Prior chest exam 2014. FINDINGS: Lung alaniz are clear. Vascular markings are normal. Opacification of the right cardiophrenic angle h as been previously noted as a cystic lesion. It appears stable. Heart and mediastinum appear unremarkable. Degenerative spine changes. Mild degenerative shoulder changes. IMPRESSION: No acute process
== END 2019-06-02 11:05 | disposition home or self-care (01) ==
LOC: BICRAD 11:04
PROVIDERS: ATTEND Urology
DX: C67.9 Malignant neoplasm of bladder, unspecified (principal)
CPT/HCPCS: 71046

== ENCOUNTER 2020-02-09 11:58 | Outpatient (CLI) | payer MEDICARE, BC ==
--- NOTE | 2020-02-09 12:48 | RAD ---
EXAM: Single view of the abdomen HISTORY: Bladder cancer COMPARISON: None FINDINGS: Single view of the abdomen shows a nonspecific, nonobstructive bowel gas pattern. No suspi cious calcifications are seen. A right ureteral stent appears in good position. Patient is status post bilateral hip arthroplasty. Degenerative changes are seen in the lumbar spine. IMPRESSION: Nonobstructive bowel gas pattern
--- NOTE | 2020-02-09 12:54 | RAD ---
2 VIEW CHEST: Date: 02/09/2020 INDICATION: Bladder cancer. Comparison made to previous chest film of 06/02/[address] chest of 02/23/2019. FINDINGS: Nodular opacity right peripheral lung is stable. Density at the right cardiophrenic angle has been previously shown to be a cystic lesion as noted on prior chest CT. This is stable. The lung alaniz appear clear. No infiltrate. Vascular markings within normal range. Heart and mediast inum unremarkable. Degenerative spine changes appear stable. IMPRESSION: Stable chest findings without acute process. POS: AH
== END 2020-02-09 11:59 | disposition home or self-care (01) ==
LOC: BICRAD 11:58
PROVIDERS: ATTEND Urology
DX: C67.9 Malignant neoplasm of bladder, unspecified (principal)
CPT/HCPCS: 71046; 74018

== ENCOUNTER 2020-02-18 05:28 | Outpatient (CLI) | payer MEDICARE, BC, OTHER ==
[2020-02-18 16:55] LABS: PTT 27.2 sec (22.9-36.1)
[2020-02-19 12:53] LABS: SARS-CoV-2 MS2 Positive; SARS-CoV-2 N Gene Negative; SARS-CoV-2 S Gene Negative; SARS-CoV-2 orf1ab Negative
== END 2020-02-18 05:29 | disposition home or self-care (01) ==
LOC: LABBT 05:28
PROVIDERS: ATTEND Urology
DX: Z01.812 Encounter for preprocedural laboratory examination (principal); Z11.59 Encounter for screening for other viral diseases; N13.30 Unspecified hydronephrosis; C67.9 Malignant neoplasm of bladder, unspecified; Z96.0 Presence of urogenital implants
CPT/HCPCS: 85610; 85730; U0003; 87635

== ENCOUNTER 2020-02-22 10:17 | Day surgery (SDC) | payer MEDICARE, BC ==
[2020-02-16 11:32] VITALS: BMI 25.1
[2020-02-22] MEDS ORDERED: Ondansetron PF 4 MG/2 ML Vial ONE (11:54)
[2020-02-22] MEDS ORDERED: EPHEDRINE 25 MG/5 ML SYRINGE ONE (11:54)
[2020-02-22] MEDS ORDERED: Lidocaine 1% PF 5 ML VIAL ONE (11:54)
[2020-02-22] MEDS ORDERED: PROPOFOL 200 MG/20 ML VIAL ONE (11:54)
[2020-02-22] MEDS ORDERED: Dexamethasone 20 MG/5 ML VIAL ONE (11:54)
[2020-02-22] MEDS ORDERED: Iothalamate Meglumine 60% 50 ML VIAL FS ONE (12:41)
[2020-02-22] MEDS ORDERED: Fentanyl 100 MCG/2 ML VIAL ONE (12:48)
--- NOTE | 2020-02-22 15:45 | RAD ---
EXAM: Retrograde IVP HISTORY: Hydronephrosis COMPARISON: 05/25/2019 FINDINGS/IMPRESSION: Limited intraoperative fluoroscopic views of the retrograde IVP were submitted f or interpretation. There is moderate to severe right hydronephrosis. The last images show placement of a double-J ureteral stent in good position in the right renal collecting system. There is no left hydronephrosis. No obvious filling defects are seen. The patient is status post bilateral hip arthroplasty. Degenerative changes are seen in the spine.
--- NOTE | 2020-02-22 17:24 | OP ---
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 It was managed with a right stent. 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 It was managed with a right stent. PROCEDURES PERFORMED: Cystoscopy, removal of right stent, right retrograde, replacement of right stent, and exam under anesthesia. ANESTHETIC: General. ESTIMATED BLOOD LOSS: Less than 50 mL. FINDINGS: She had her a lot of tumor previously resected around the right ureteral orifice including the right ureteral orifice. There was not any tumor growing intravesically currently. There was no necrotic tissue in this region either. The stent was no longer patent. We were able to feed a guidewire up adjacent to it and remove it intact. There was an area in the proximal ureter where we had difficulty getting a guidewire by it after we did our retrograde and this is an area that is a slight filling defect which could possibly be a second transitional cell in this region or perhaps it could even be some stone fragments from the proximal coil of her stent as it appears that her stent has probably not been changed for a number of months. We were able to get a 6 x 24 by this point. The string was not left attached to it. Bimanual exam at the end of the case does reveal no fixation, but there is a 3-dimensional mass in the bladder, still probably 2 x 3 cm. It feels like it is very round, and I think we will see about probably getting her to back to [facility] if she can get that visit made if now we may even have her see the oncologist here for restaging as she had to delay her surgery because of the COVID virus. DESCRIPTION OF PROCEDURE: After obtaining written and verbal consent from the patient and after receiving IV Ancef, she was taken to the operating suite. She was placed in a supine position on the treatment table. PlexiPulses were placed on her lower extremities and turned on. She was given a general anesthetic and oral obturator intubation. She was placed in the dorsal lithotomy position. She was sterilely prepped and draped. The fluoroscopy unit was used to it for imaging. The stent was easily seen, did not appear to be calcified. Cystoscopy was performed with a 22-Andorran sheath. This was well lubricated and passed under direct vision through the female urethra into the bladder with aid of a 30-degree lens and camera and monitor. There was a little bit of debris on the floor of the bladder. I did not see any obvious bladder tumor. The area of the prior resection around the right ureteral orifice was identified and appeared healed. The distal end of the stent had no calcification on it, it was brought out through the urethral meatus. It looks like the upper coil of it uncurled as we brought this down to about the [address] down the ureter. We then attempted to feed a guidewire through the stent, but I was unable to pass even a centimeter up, so we looked back cystoscopically and we fed a guidewire up adjacent to the stent, and it went all the way up into the region of the renal pelvis. We removed the stent intact and discarded it. We passed a 5-[place]ran Ford catheter over this guidewire and pushed up in the region of the renal pelvis, removed the guidewire and then filled the renal pelvis with contrast, so we brought the stent down the ureter. When we got about a third of the way down the right ureter, the hydronephrosis stopped it at one point and after a few minutes, there was some of the contrast came down still dilated the ureter below it. At this point, we went ahead and fed a guidewire back up the Ford catheter and we would not go by this point in the proximal ureter. We ended up having to use an angled Glidewire. We could not get that to manipulate by it and then, a straight Glidewire, which did manipulate by it, and we were able to place another stent over that without difficulty. The urine draining from it was clear. This stent was placed over the guidewire and pushed up into place with aid of a pusher, so its proximal end coiled in the upper calyceal system and its distal end coiled in the bladder when the wire was removed. The bladder was drained. The instruments were removed. The patient was awakened, extubated, and taken by stretcher to recovery room. ADDENDUM: We also did shoot a left retrograde. This was done because she has not had an upper tract study on that side done either for the last few months and this showed no evidence of hydronephrosis, filling defect, or extravasation. Job ID: [id number]
== END 2020-02-22 15:30 | disposition home or self-care (01) ==
LOC: SDC 10:17
PROVIDERS: ATTEND Urology
PROC: 0T768DZ Dilation of Right Ureter with Intraluminal Device, Via Natural or Artificial Opening Endoscopic (ICD-10-PCS; principal; 2020-02-22)
PROC: 0TP98DZ Removal of Intraluminal Device from Ureter, Via Natural or Artificial Opening Endoscopic (ICD-10-PCS; 2020-02-22)
DX: N13.30 Unspecified hydronephrosis (principal); C67.9 Malignant neoplasm of bladder, unspecified; M47.9 Spondylosis, unspecified; K21.9 Gastro-esophageal reflux disease without esophagitis; I10 Essential (primary) hypertension; Z79.2 Long term (current) use of antibiotics; Z79.899 Other long term (current) drug therapy; Z88.5 Allergy status to narcotic agent; Z88.8 Allergy status to other drugs, medicaments and biological substances
CPT/HCPCS: 74420; J0690; J3010

== ENCOUNTER 2020-05-24 15:02 | Outpatient (CLI) | payer MEDICARE, BC ==
--- NOTE | 2020-05-24 16:13 | MMO ---
Bilateral MAMMO Bilat Screen [facility]. CLINICAL HISTORY: Patient is 85 years old and is seen for screening. The patient has the following family history of breast cancer: sister, 60'S. The patient has no personal history of cancer. VIEWS: The views performed were: bilateral craniocaudal with tomosynthesis and bilateral mediolateral oblique with tomosynthesis. FILMS COMPARED: The present examination has been compared to prior imaging studies performed at [facility] on 10/30/2016, 01/21/2018, 02/23/2019 and 03/04/2019. This study has been interpreted with the assistance of computer-aided detection. MAMMOGRAM FINDINGS: There are scattered fibroglandular densities. There are no suspicious masses, suspicious calcifications, or new areas of architectural distortion. IMPRESSION: THERE IS NO MAMMOGRAPHIC EVIDENCE OF MALIGNANCY. A ROUTINE FOLLOW-UP MAMMOGRAM IN 1 YEAR IS RECOMMENDED. THE RESULTS OF THIS EXAM WERE SENT TO THE PATIENT. ACR BI-RADS Category 1 - Negative MAMMOGRAPHY NOTE: 1. A negative mammogram report should not delay a biopsy if a dominant of clinically suspicious mass is present. 2. Approximately 10% to 15% of breast cancers are not detected by mammography. 3. Adenosis and dense breasts may obscure an underlying neoplasm. Reported by: Altagracia MERRITT Electonically Signed: [id number]
== END 2020-05-24 15:03 | disposition home or self-care (01) ==
LOC: BICMAMMO 15:02
PROVIDERS: ATTEND Internal Medicine Hematology & Oncology
DX: Z12.31 Encounter for screening mammogram for malignant neoplasm of breast (principal); Z80.3 Family history of malignant neoplasm of breast
CPT/HCPCS: 77063; 77067

== ENCOUNTER 2020-08-11 08:42 | Outpatient (CLI) | payer MEDICARE, BC ==
--- NOTE | 2020-08-11 10:20 | PET ---
Radionucleotide PET scan with CT attenuation correction HISTORY: Malignant neoplasm of posterior wall of bladder. Malignant neoplasm right lung and bronchus. Restaging. COMPARISON: 03/29/2020. FINDINGS: In an area of stable size spiculated scar at the left lung apex, max SUV activity on today' s exam is 1.1 (previously 1.0). At the lateral segment right middle lobe, where a hypermetabolic nodule was present on the prior stud y, there is minimal residual scar without increased activity. No new areas of pathologic activity are evident. Longitudinally oriented uptake along the right lower back posterior paraspinal musculature is less intense, without focal mass like abnormality. Uptake within the urinary bladder is consistent with urine. Very subtle ill-defined patchy areas of groundglass opacity involving each lung are stable, therefore not an acute inflammatory process. Prominent calcification of the arteries including severe stenoses at the origin of the left subclavia n artery and the distal abdominal aorta. Right ureteral stent remains in place. Calcified uterine fibroid. Small hiatal hernia. Bilateral hip prostheses. IMPRESSION : Interval resolution of the hypermetabolic right middle lobe lung nodule. No new hypermetabolic abnorm alities.
== END 2020-08-11 08:43 | disposition home or self-care (01) ==
LOC: PET 08:42
PROVIDERS: ATTEND Internal Medicine Hematology & Oncology
DX: C67.4 Malignant neoplasm of posterior wall of bladder (principal); C34.81 Malignant neoplasm of overlapping sites of right bronchus and lung
CPT/HCPCS: 78815; A9552

== ENCOUNTER 2020-08-31 07:25 | Outpatient (CLI) | payer MEDICARE, BC ==
[2020-08-31 12:40] LABS: Hemoglobin 12.1 g/dL (12.0-16.0); Mean Corpuscular HGB CONC 32.7 G/DL (32.0-36.0); Mean Corpuscular Hemoglobin 30.8 PG (27.0-33.0); Mean Corpuscular Volume 94.1 fl (80.0-100.0); Mean Platelet Volume 9.2 fl (7.4-10.4); Platelet Count 314 10x3/uL (130-400); RBC Distribution Width 13.1 % (11.5-14.5); Red Blood Cell (RBC) Count 3.93 10x6/uL (3.90-5.20); White Blood Cell (WBC) Count 9.4 10x3/uL (4.5-11.0)
[2020-08-31 12:49] LABS: Anion Gap 16 mmol/L (10-20); BUN (Urea Nitrogen) 21 mg/dL (9.8-20.1); Calc. Creatinine Clearance 0 mL/min (70-130); Calcium 9.2 mg/dL (7.8-10.44); Carbon Dioxide 24 mmol/L (23-31); Chloride 100 mmol/L (98-107); Glucose 105 mg/dL (83-110); Potassium 4.7 mmol/L (3.5-5.1); Sodium 135 mmol/L (136-145)
[2020-08-31 13:01] LABS: Prothrombin Time 10.4 sec (9.5-12.1)
[2020-09-01 17:46] LABS: SARS-CoV-2 PCR by NAA Not Detected (NotDetected)
== END 2020-08-31 07:26 | disposition home or self-care (01) ==
LOC: LABBT 07:25
PROVIDERS: ATTEND Urology
DX: Z01.812 Encounter for preprocedural laboratory examination (principal); N13.30 Unspecified hydronephrosis; Z20.822 Contact with and (suspected) exposure to COVID-19
CPT/HCPCS: 80048; 85027; 85610; 85730; U0003; U0005; 87635

== ENCOUNTER 2020-09-05 05:47 | Day surgery (SDC) | payer MEDICARE, BC ==
[2020-09-02 10:39] VITALS: BMI 25.0
[2020-09-05] MEDS ORDERED: Iothalamate Meglumine 60% 50 ML VIAL FS ONE (07:05)
[2020-09-05] MEDS ORDERED: Fentanyl 100 MCG/2 ML VIAL ONE (07:16)
[2020-09-05] MEDS ORDERED: Levofloxacin 500 mg/D5W 100 ml Premix Bag ONE (07:18)
--- NOTE | 2020-09-05 08:44 | RAD ---
EXAM: XR IVP Retrograde DATE: 09/05/2020 12:00 AM INDICATION: Stent placement COMPARISON: Prior IVP retrograde dated 02/22/[address] abdomen pelvis with and without contra st dated 04/28/2019 FINDIN fluoroscopic spot images were submitted from a stent revision involving the right renal c ollecting system. First submitted image demonstrates placement of a double J right ureteral stent. Subsequent images demonstrate removal of the stent and placement of a wire and the right renal collec ting system. There is retrograde opacification of the right renal collecting system through a catheter within the right ureter. There is irregular narrowing involving the proximal right ureter wi th moderate right hydronephrosis. Subsequent image demonstrates placement of the wire and catheter within a mid calyx of the kidney. There is subsequent redirection of the wire and catheter to a super ior calyx of the right renal collecting system and placement of a new right double-J ureteral stent. There is a mild amount of residual contrast within the right renal collecting system. There is stable fibroid within the left aspects of the uterus. There are bilateral total hip replacements. 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 IMPRESSION:Revision of the right ureteral stent. There is moderate irregular narrowing involving the proximal right ureter with moderate right hydronephrosis. Focal urothelial lesion or scarring is suspected within this location. The new right ureteral stent projects in the expected position. There is a mild amount of residual contrast within the right renal collecting system on the final submitted image.
[2020-09-05] MEDS ORDERED: Lidocaine 1% PF 5 ML VIAL ONE (11:16)
[2020-09-05] MEDS ORDERED: Ondansetron PF 4 MG/2 ML Vial ONE (11:16)
[2020-09-05] MEDS ORDERED: Dexamethasone 20 MG/5 ML VIAL ONE (11:16)
[2020-09-05] MEDS ORDERED: ePHEDrine 50 MG/ML VIAL ONE (11:16)
[2020-09-05] MEDS ORDERED: PROPOFOL 200 MG/20 ML VIAL ONE (11:16)
[2020-09-05] MEDS ORDERED: PHENYLEPHRINE-NS 100 MCG/ML 10 ML SYRINGE ONE (11:16)
--- NOTE | 2020-09-07 10:01 | OP ---
DATE OF PROCEDURE: 09/05/2020 PREOPERATIVE DIAGNOSIS: Right ureteral obstruction secondary to transitional cell cancer of the bladder and probably from lymph node obstruction. POSTOPERATIVE DIAGNOSIS: Right ureteral obstruction secondary to transitional cell cancer of the bladder and probably from lymph node obstruction. PROCEDURES PERFORMED: Cysto, removal of right stent, right retrograde, and right stent replacement. ANESTHETIC: General. ESTIMATED BLOOD LOSS: Minimal. FINDINGS: Her stent this time was heavily calcified on its distal end. I expect that she had some calcifications on its proximal end as when removing the stent and trying to advance a guidewire up, we could get up to about two-thirds of the way, and it did meet obstruction. The retrograde study done at this portion showed some small filling defects, which were probably stone fragments, but we were able to push them back up with the Pollack in and get an angled Glidewire to go through this. Her urine from the right kidney was very cloudy, so we did send this for culture. She received Ancef upfront, and we will keep her on Keflex postop for a few days. We will see what the results of this culture are. She did not have any urinary tract symptoms coming into the procedure. DESCRIPTION OF PROCEDURE: After obtaining written and verbal consent from the patient, after receiving IV Ancef, she was taken to the operating suite. She was placed in a supine position on the treatment table. PlexiPulses were placed on her lower extremities and turned on. She was given a general anesthetic and oral obturator intubation. She was placed in the dorsal lithotomy position and sterilely prepped and draped. The fluoroscopic unit was positioned over her. Cystoscopy was performed with a 22-[place]orese sheath and a 30-degree lens and video camera and monitor. The bladder was filled and emptied a number of times, and then, the calcified distal right double-J stent was grasped and brought out through the urethral meatus. Its lumen was crystallized. It was removed. The upper coil easily uncoiled and easily came out. We then fed a guidewire it went about two-thirds way up the ureter and met some obstruction. We placed a 5-[place] Pollack catheter over it and then removed the guidewire and injected contrast showing some small little filling defects in this region, which were probably some small calcifications off the top coil of her stent. We were able to get an angled Glidewire to go by this and advanced the Pollack catheter up into this system. This was not a heavily dilated system. We did drain about 10 mL, however, very cloudy urine that we sent for culture. We then replaced the guidewire through the Pollack, removed the Pollack, and placed a 6 x 24 Polaris double-J stent over the guidewire, pushed up into place with aid of a pusher, so its proximal end coiled in the upper pole calyceal system. Its distal end coiled in the bladder when the wire was removed. The bladder was drained. The instruments were removed. She was returned to the supine position and awakened and extubated, taken by lauraer to recovery room. Job ID: [id number]
== END 2020-09-05 09:50 | disposition home or self-care (01) ==
LOC: SDC 05:47
PROVIDERS: ATTEND Urology
PROC: 0T768DZ Dilation of Right Ureter with Intraluminal Device, Via Natural or Artificial Opening Endoscopic (ICD-10-PCS; principal; 2020-09-05)
DX: C67.9 Malignant neoplasm of bladder, unspecified (principal); N13.1 Hydronephrosis with ureteral stricture, not elsewhere classified; M47.816 Spondylosis without myelopathy or radiculopathy, lumbar region; M41.9 Scoliosis, unspecified; I10 Essential (primary) hypertension; K21.9 Gastro-esophageal reflux disease without esophagitis; Z88.5 Allergy status to narcotic agent; Z96.649 Presence of unspecified artificial hip joint; Z79.899 Other long term (current) drug therapy
CPT/HCPCS: 74420; 87076; 87077; 87086; 87186; J1100; J1956; J2405; J2704; J3010; J3490

== ENCOUNTER 2020-12-06 08:49 | Outpatient (CLI) | payer MEDICARE, BC | END 2020-12-06 08:50 | disposition home or self-care (01) | LOC: PET 08:49 | PROVIDERS: ATTEND Internal Medicine Hematology & Oncology | DX: C67.4 Malignant neoplasm of posterior wall of bladder (principal); C34.81 Malignant neoplasm of overlapping sites of right bronchus and lung | CPT/HCPCS: 78815; A9552 ==

== ENCOUNTER 2020-12-30 19:38 | Inpatient (IN) | payer MEDICARE, BC ==
[2020-12-30 20:39] LABS: #Basophils 0.1 thou/uL (0.0-0.2); #Eosinphils 0.4 thou/uL (0.0-0.7); #Monocytes 0.6 thou/uL (0.11-0.59); #Neutrophils 2.9 thou/uL (1.40-6.50); %Basophils 1.2 % (0.0-1.0); %Eosinophils 6.6 % (0.0-10.0); %Lymphocytes 33.3 % (21.0-51.0); %Neutrophils 48.8 % (42.0-75.0); Hemoglobin 13.1 g/dL (12.0-16.0); Mean Corpuscular HGB CONC 34.8 g/dL (32.0-36.0); Mean Corpuscular Hemoglobin 32.4 pg (27.0-31.0); Mean Corpuscular Volume 93.1 fL (78.0-98.0); Mean Platelet Volume 6.5 fL (7.4-10.4); Platelet Count 280 thou/uL (130-400); RBC Distribution Width 12.1 % (11.5-14.5); Red Blood Cell (RBC) Count 4.04 mill/uL (4.20-5.40)
[2020-12-30 20:50] LABS: INR-International Normal Ratio 0.9; PTT 26.8 sec (22.9-36.1); Prothrombin Time 12.3 sec (12.0-14.7)
[2020-12-30 20:59] LABS: ALT (SGPT) 19 U/L (8-55); AST (SGOT) 29 U/L (5-34); Alkaline Phosphatase 92 U/L (40-110); Anion Gap 15 mmol/L (10-20); BUN (Urea Nitrogen) 15 mg/dL (9.8-20.1); Bilirubin, Total 0.3 mg/dL (0.2-1.2); CK (CPK) 113 U/L (29-168); Calc. Creatinine Clearance 0 mL/min (70-130); Carbon Dioxide 22 mmol/L (23-31); Chloride 105 mmol/L (98-107); Globulin 2.7 g/dL (2.4-3.5); Glucose 100 mg/dL (83-110); Potassium 3.9 mmol/L (3.5-5.1); Protein, Total 6.7 g/dL (5.8-8.1); Sodium 138 mmol/L (136-145)
[2020-12-30 21:45] LABS: Bacteria/HPF 4+ HPF (None Seen); Bilirubin Negative (Negative); Blood, Urine 1+ (Negative); Clarity Clear (Clear); Glucose, Urine (Dipstick) Normal (Negative); Ketone, Urine Negative (Negative); Leukocyte 500 Leu/uL (Negative); Nitrite Negative (Negative); Protein, Urine (Dipstick) Negative (Neg-Trace); RBC/HPF 0-3 HPF (0-3); Specific Gravity, Urine 1.004 (1.002-1.036); Squamous Epithelial 0-3 HPF (0-3); Urobilinogen Normal mg/dL (Less than 2); WBC/HPF 21-50 HPF (0-3); pH, Urine 6.5 (5.0-9.0)
[2020-12-30] MEDS ORDERED: cefTRIAXone\\ROCEPHIN 2 GM VIAL ONE (23:44)
[2020-12-30] MEDS ORDERED: Aspirin Chewable 81 MG TAB ONE (23:44)
[2020-12-30 23:56] LABS: Troponin I Less than 0.010 ng/mL (< 0.028)
[2020-12-31 00:44] VITALS: BMI 25.6
[2020-12-31] MEDS ORDERED: HYDROcodone/Acetaminophen 5/325 mg Tablet PO PRN (00:57)
[2020-12-31] MEDS ORDERED: Ondansetron ODT 4 MG TAB PO PRN (00:57)
[2020-12-31] MEDS ORDERED: Ondansetron PF 4 MG/2 ML Vial IVP PRN (00:57)
[2020-12-31] MEDS ORDERED: Acetaminophen 325 MG TAB PO PRN (00:57)
[2020-12-31 02:29] LABS: #Basophils 0.1 thou/uL (0.0-0.2); #Eosinphils 0.4 thou/uL (0.0-0.7); #Lymphocytes 1.6 thou/uL (1.20-3.40); #Monocytes 0.7 thou/uL (0.11-0.59); #Neutrophils 3.6 thou/uL (1.40-6.50); %Basophils 0.9 % (0.0-1.0); %Eosinophils 6.8 % (0.0-10.0); %Lymphocytes 24.9 % (21.0-51.0); %Monocytes 11.3 % (0.0-10.0); %Neutrophils 56.1 % (42.0-75.0); Hemoglobin 13.4 g/dL (12.0-16.0); Mean Corpuscular HGB CONC 34.5 g/dL (32.0-36.0); Mean Corpuscular Hemoglobin 32.3 pg (27.0-31.0); Mean Corpuscular Volume 93.5 fL (78.0-98.0); Mean Platelet Volume 6.7 fL (7.4-10.4); Platelet Count 280 thou/uL (130-400); RBC Distribution Width 12.1 % (11.5-14.5); Red Blood Cell (RBC) Count 4.15 mill/uL (4.20-5.40); White Blood Cell (WBC) Count 6.4 thou/uL (4.8-10.8)
[2020-12-31] MEDS ORDERED: Dexamethasone 10 MG in Sodium Chloride 0.9% 50 ML IVPB SCH (02:30)
[2020-12-31 02:43] LABS: Anion Gap 13 mmol/L (10-20); BUN (Urea Nitrogen) 14 mg/dL (9.8-20.1); Calc. Creatinine Clearance 39 mL/min (70-130); Calcium 9.3 mg/dL (7.8-10.44); Carbon Dioxide 25 mmol/L (23-31); Chloride 105 mmol/L (98-107); Glucose 126 mg/dL (83-110); Potassium 3.6 mmol/L (3.5-5.1); Sodium 139 mmol/L (136-145)
[2020-12-31 03:16] LABS: SARS-CoV-2 NAA Rapid Test Not Detected (NotDetected)
[2020-12-31] MEDS ORDERED: Lorazepam 0.5 MG TAB PO PRN (08:58)
[2020-12-31] MEDS ORDERED: Enoxaparin Sodium 40 MG/0.4 ML SYRINGE SC SCH (09:00)
[2020-12-31] MEDS ORDERED: Magnevist 469MG/ML 20 ML VIAL ONE (13:05)
[2020-12-31] MEDS ORDERED: Amlodipine 5 MG TAB PO SCH (14:30)
[2020-12-31] MEDS ORDERED: Cefdinir 300 MG CAP PO SCH ×2 (14:30→21:00)
[2020-12-31 16:00] VITALS: TEMP 97.3
[2020-12-31 17:21] VITALS: BP 161/77
[2021-01-01] MEDS ORDERED: Dexamethasone 4 MG TAB PO SCH (08:00)
[2021-01-01] MEDS ORDERED: Amlodipine 5 MG TAB PO SCH (09:00)
== END 2020-12-31 19:00 | disposition home or self-care (01) | DRG 55 ==
LOC: ERS 19:38 → 2SE 22:42
PROVIDERS: ADMIT Student in an Organized Health Care Education/Training Program; ATTEND Internal Medicine
DX: C79.31 Secondary malignant neoplasm of brain (principal); N39.0 Urinary tract infection, site not specified; C34.90 Malignant neoplasm of unspecified part of unspecified bronchus or lung; C55 Malignant neoplasm of uterus, part unspecified; I10 Essential (primary) hypertension; Z96.643 Presence of artificial hip joint, bilateral; Z20.822 Contact with and (suspected) exposure to COVID-19; F17.210 Nicotine dependence, cigarettes, uncomplicated; Z88.8 Allergy status to other drugs, medicaments and biological substances; Z88.5 Allergy status to narcotic agent; Z90.49 Acquired absence of other specified parts of digestive tract; Z92.21 Personal history of antineoplastic chemotherapy
CPT/HCPCS: 36415; 70450; 70553; 71045; 80048; 80053; 81003; 81015; 82550; 84484; 85025; 85610; 85730; 87077; 87086; 87186; 93005; 93306; 95712; 95819; 95957; A9579; J0696; J1100; J1650; U0002

== ENCOUNTER 2021-01-23 09:03 | Outpatient (CLI) | payer MEDICARE, BC ==
[2021-01-23 11:54] LABS: Hemoglobin 12.8 g/dL (12.0-15.5); Mean Corpuscular HGB CONC 33.8 g/dL (32.0-36.0); Mean Corpuscular Hemoglobin 31.1 pg (27.0-33.0); Mean Corpuscular Volume 92.2 fl (81.6-98.3); Mean Platelet Volume 9.5 fl (7.4-10.4); Platelet Count 225 10x3/uL (150-450); RBC Distribution Width 14.2 % (11.5-14.5); Red Blood Cell (RBC) Count 4.11 10x6/uL (3.90-5.03); White Blood Cell (WBC) Count 12.9 10x3/uL (3.5-10.5)
[2021-01-23 12:19] LABS: INR-International Normal Ratio 0.9; PTT 21.3 sec (22.0-33.0); Prothrombin Time 10.5 sec (9.5-12.1)
[2021-01-23 12:26] LABS: Anion Gap 14 mmol/L (10-20); BUN (Urea Nitrogen) 32 mg/dL (9.8-20.1); Calc. Creatinine Clearance 0 mL/min (70-130); Calcium 8.9 mg/dL (7.8-10.44); Carbon Dioxide 24 mmol/L (23-31); Chloride 100 mmol/L (98-107); Glucose 95 mg/dL (83-110); Potassium 4.4 mmol/L (3.5-5.1); Sodium 134 mmol/L (136-145)
[2021-01-23 13:25] LABS: Bilirubin Neg (Negative); Blood, Urine 25 (Negative); Clarity Clear (Clear); Glucose, Urine (Dipstick) Normal (Negative); Ketone, Urine Negative (Negative); Leukocyte 500 (Negative); Nitrite Positive (Negative); Protein, Urine (Dipstick) Negative (Neg-Trace); Urobilinogen Normal mg/dL (Less than 2); pH, Urine 6.5 (5.0-9.0)
[2021-01-23 15:50] LABS: Bacteria/HPF 2+ HPF (None Seen)
== END 2021-01-23 09:04 | disposition home or self-care (01) ==
LOC: LABBT 09:03
PROVIDERS: ATTEND Urology
DX: Z01.812 Encounter for preprocedural laboratory examination (principal); N13.5 Crossing vessel and stricture of ureter without hydronephrosis
CPT/HCPCS: 80048; 81001; 85027; 85610; 85730; 87086

== ENCOUNTER 2021-01-26 09:36 | Day surgery (SDC) | payer MEDICARE, BC ==
[2021-01-25 10:32] VITALS: BMI 26.1
[2021-01-26] MEDS ORDERED: Levofloxacin 500 mg/D5W 100 ml Premix Bag ONE (11:29)
[2021-01-26] MEDS ORDERED: PROPOFOL 200 MG/20 ML VIAL ONE (11:55)
[2021-01-26] MEDS ORDERED: Ondansetron PF 4 MG/2 ML Vial ONE (11:55)
[2021-01-26] MEDS ORDERED: Hydrocortisone Sod Succ/PF 100 mg/2 ml Vial ONE (11:55)
[2021-01-26] MEDS ORDERED: PHENYLEPHRINE-NS 100 MCG/ML 10 ML SYRINGE ONE (11:55)
[2021-01-26] MEDS ORDERED: Fentanyl 100 MCG/2 ML VIAL ONE (12:57)
[2021-01-26] MEDS ORDERED: Iothalamate Meglumine 60% 50 ML VIAL FS ONE (12:58)
== END 2021-01-26 15:30 | disposition home or self-care (01) ==
LOC: SDC 09:36
PROVIDERS: ATTEND Urology
PROC: 0T768DZ Dilation of Right Ureter with Intraluminal Device, Via Natural or Artificial Opening Endoscopic (ICD-10-PCS; principal; 2021-01-26)
PROC: 0TP98DZ Removal of Intraluminal Device from Ureter, Via Natural or Artificial Opening Endoscopic (ICD-10-PCS; 2021-01-26)
DX: N13.1 Hydronephrosis with ureteral stricture, not elsewhere classified (principal); C67.9 Malignant neoplasm of bladder, unspecified; I10 Essential (primary) hypertension; K21.9 Gastro-esophageal reflux disease without esophagitis; Z79.899 Other long term (current) drug therapy; Z88.5 Allergy status to narcotic agent; Z88.8 Allergy status to other drugs, medicaments and biological substances
CPT/HCPCS: 52332; 74420; C2617; Q9961; J1720; J1956; J2405; J2704; J3010

== ENCOUNTER 2021-04-04 10:27 | Outpatient (CLI) | payer MEDICARE, BC | END 2021-04-04 10:28 | disposition home or self-care (01) | LOC: SCSMRI 10:27 | PROVIDERS: ATTEND Specialist | DX: M48.062 Spinal stenosis, lumbar region with neurogenic claudication (principal); M47.816 Spondylosis without myelopathy or radiculopathy, lumbar region; N13.4 Hydroureter; N13.30 Unspecified hydronephrosis | CPT/HCPCS: 72148 ==

== ENCOUNTER 2021-04-18 10:18 | Outpatient (CLI) | payer MEDICARE, BC ==
[~2021-04-18 10:18] MED LIST changes: -B & O ONE; -Fentanyl 100 MCG/2 ML VIAL ONE; -Iothalamate Meglumine 60% 50 ML VIAL FS ONE; +Magnevist 469MG/ML 20 ML VIAL ONE; -Sodium Chloride 0.9% 100 ML ONE; -cefTRIAXone\\ROCEPHIN 1 GM VIAL ONE
== END 2021-04-18 10:19 | disposition home or self-care (01) ==
LOC: PET 10:18
PROVIDERS: ATTEND Internal Medicine Hematology & Oncology
DX: C79.31 Secondary malignant neoplasm of brain (principal); C34.81 Malignant neoplasm of overlapping sites of right bronchus and lung; C67.4 Malignant neoplasm of posterior wall of bladder; C77.1 Secondary and unspecified malignant neoplasm of intrathoracic lymph nodes
CPT/HCPCS: 70553; 78815; A9552; A9579

== ENCOUNTER 2021-06-14 08:26 | Outpatient (CLI) | payer MEDICARE, BC ==
[2021-06-14] MEDS ORDERED: Iopamidol-370 76% 500 ML 1 ML ONE (09:26)
== END 2021-06-14 08:27 | disposition home or self-care (01) ==
LOC: BICCT 08:26
PROVIDERS: ATTEND Internal Medicine Hematology & Oncology
DX: C67.4 Malignant neoplasm of posterior wall of bladder (principal); C34.81 Malignant neoplasm of overlapping sites of right bronchus and lung; K82.8 Other specified diseases of gallbladder
CPT/HCPCS: 71260; 74177; 82565; Q9967

== ENCOUNTER 2021-07-19 11:30 | Outpatient (CLI) | payer MEDICARE, BC | END 2021-07-19 11:31 | disposition home or self-care (01) | LOC: MRI 11:30 | PROVIDERS: ATTEND Radiology Radiation Oncology | DX: C34.81 Malignant neoplasm of overlapping sites of right bronchus and lung (principal); C79.31 Secondary malignant neoplasm of brain | CPT/HCPCS: 70553 ==

== ENCOUNTER 2021-08-16 11:14 | Outpatient (CLI) | payer MEDICARE, BC ==
[2021-08-16 12:57] LABS: Anion Gap 12 mmol/L (10-20); BUN (Urea Nitrogen) 17 mg/dL (9.8-20.1); Calc. Creatinine Clearance 0 mL/min (70-130); Calcium 9.3 mg/dL (7.8-10.44); Carbon Dioxide 27 mmol/L (23-31); Chloride 103 mmol/L (98-107); Glucose 97 mg/dL (83-110); Potassium 4.3 mmol/L (3.5-5.1); Sodium 138 mmol/L (136-145)
[2021-08-16 13:00] LABS: Hemoglobin 12.7 g/dL (12.0-15.5); Mean Corpuscular HGB CONC 32.8 g/dL (32.0-36.0); Mean Corpuscular Hemoglobin 31.1 pg (27.0-33.0); Mean Corpuscular Volume 94.6 fl (81.6-98.3); Mean Platelet Volume 9.1 fl (7.4-10.4); Platelet Count 318 10x3/uL (150-450); RBC Distribution Width 13.3 % (11.5-14.5); Red Blood Cell (RBC) Count 4.09 10x6/uL (3.90-5.03); White Blood Cell (WBC) Count 7.3 10x3/uL (3.5-10.5)
[2021-08-16 13:05] LABS: PTT 26.6 sec (22.0-33.0); Prothrombin Time 10.9 sec (9.5-12.1)
[2021-08-17 14:35] LABS: SARS-CoV-2 PCR by NAA Not Detected (NotDetected)
== END 2021-08-16 11:15 | disposition home or self-care (01) ==
LOC: LABBT 11:14
PROVIDERS: ATTEND Internal Medicine Pulmonary Disease
DX: Z01.812 Encounter for preprocedural laboratory examination (principal); C67.9 Malignant neoplasm of bladder, unspecified; N13.30 Unspecified hydronephrosis; Z20.822 Contact with and (suspected) exposure to COVID-19
CPT/HCPCS: 80048; 85027; 85610; 85730; 87077; 87086; 87186; U0003; U0005

== ENCOUNTER 2021-08-18 11:03 | Day surgery (SDC) | payer MEDICARE, BC ==
[2021-08-14 16:10] VITALS: BMI 25.7
[2021-08-18] MEDS ORDERED: Lidocaine 4% PF 5 ML AMP NEB SCH (12:00)
[2021-08-18] MEDS ORDERED: Sodium Chloride 0.9% 1,000 ML IV SCH (12:00)
[2021-08-18] MEDS ORDERED: Fentanyl 100 MCG/2 ML VIAL ONE (12:32)
[2021-08-18] MEDS ORDERED: Phenylephrine 10 MG/ML VIAL ONE (12:33)
[2021-08-18] MEDS ORDERED: SUGAMMADEX SODIUM 200 MG/2 ML VIAL ONE (12:47)
[2021-08-18] MEDS ORDERED: Ondansetron PF 4 MG/2 ML Vial ONE (13:20)
[2021-08-18] MEDS ORDERED: Rocuronium Bromide 10 MG/ML (10ML VIAL) ONE (13:20)
[2021-08-18] MEDS ORDERED: PROPOFOL 200 MG/20 ML VIAL ONE (13:20)
[2021-08-18] MEDS ORDERED: Lidocaine 1% PF 5 ML VIAL ONE (13:20)
[2021-08-18] MEDS ORDERED: Ondansetron HCl/PF 4 MG/2 ML Vial IVP PRN (14:20)
[2021-08-18] MEDS ORDERED: Promethazine HCl 25 MG/ML VIAL IM PRN (14:20)
[2021-08-18] MEDS ORDERED: Promethazine HCl 25 MG/ML VIAL IVPB PRN (14:20)
== END 2021-08-18 15:57 | disposition home or self-care (01) ==
LOC: SDC 11:03
PROVIDERS: ATTEND Internal Medicine Pulmonary Disease
PROC: 07D78ZX Extraction of Thorax Lymphatic, Via Natural or Artificial Opening Endoscopic, Diagnostic (ICD-10-PCS; principal; 2021-08-18)
DX: R59.0 Localized enlarged lymph nodes (principal); E03.9 Hypothyroidism, unspecified; M48.00 Spinal stenosis, site unspecified; E78.00 Pure hypercholesterolemia, unspecified; M19.90 Unspecified osteoarthritis, unspecified site; I10 Essential (primary) hypertension; F17.210 Nicotine dependence, cigarettes, uncomplicated; Z85.118 Personal history of other malignant neoplasm of bronchus and lung; Z85.51 Personal history of malignant neoplasm of bladder; Z85.841 Personal history of malignant neoplasm of brain; Z79.899 Other long term (current) drug therapy; Z88.5 Allergy status to narcotic agent; Z88.8 Allergy status to other drugs, medicaments and biological substances
CPT/HCPCS: 88173; 88305; 88313; 88341; 88342; J2370; J2405; J2704; J3010

== ENCOUNTER 2021-08-21 11:19 | Day surgery (SDC) | payer MEDICARE, BC ==
[2021-08-15 10:50] VITALS: BMI 25.7
[2021-08-21] MEDS ORDERED: Levofloxacin 500 mg/D5W 100 ml Premix Bag ONE (12:03)
[2021-08-21] MEDS ORDERED: Iothalamate Meglumine 60% 50 ML VIAL FS ONE (13:58)
[2021-08-21] MEDS ORDERED: Fentanyl 100 MCG/2 ML VIAL ONE (14:03)
[2021-08-21] MEDS ORDERED: Ketorolac Tromethamine 30 MG/ML VIAL ONE (14:15)
[2021-08-21] MEDS ORDERED: Lidocaine 1% PF 5 ML VIAL ONE (14:15)
[2021-08-21] MEDS ORDERED: PROPOFOL 200 MG/20 ML VIAL ONE (14:15)
[2021-08-21] MEDS ORDERED: ePHEDrine 50 MG/ML VIAL ONE (14:15)
[2021-08-21] MEDS ORDERED: Ondansetron PF 4 MG/2 ML Vial ONE (14:15)
[2021-08-21] MEDS ORDERED: Dexamethasone 20 MG/5 ML VIAL ONE (14:15)
[2021-08-21] MEDS ORDERED: Phenylephrine 10 MG/ML VIAL ONE (14:15)
== END 2021-08-21 16:21 | disposition home or self-care (01) ==
LOC: SDC 11:19
PROVIDERS: ATTEND Urology
PROC: 0T768DZ Dilation of Right Ureter with Intraluminal Device, Via Natural or Artificial Opening Endoscopic (ICD-10-PCS; principal; 2021-08-21)
PROC: 0TP98DZ Removal of Intraluminal Device from Ureter, Via Natural or Artificial Opening Endoscopic (ICD-10-PCS; 2021-08-21)
DX: N13.1 Hydronephrosis with ureteral stricture, not elsewhere classified (principal); C67.9 Malignant neoplasm of bladder, unspecified; N21.0 Calculus in bladder; D25.9 Leiomyoma of uterus, unspecified; I10 Essential (primary) hypertension; K21.9 Gastro-esophageal reflux disease without esophagitis; M41.86 Other forms of scoliosis, lumbar region; Z79.899 Other long term (current) drug therapy; Z88.5 Allergy status to narcotic agent; Z88.8 Allergy status to other drugs, medicaments and biological substances
CPT/HCPCS: 52332; 74420; Q9961; C2617; J1956; J3010

== ENCOUNTER 2021-09-12 10:33 | Outpatient (CLI) | payer MEDICARE, BC | END 2021-09-12 10:34 | disposition home or self-care (01) | LOC: BICCT 10:33 | PROVIDERS: ATTEND Internal Medicine Hematology & Oncology | DX: C34.81 Malignant neoplasm of overlapping sites of right bronchus and lung (principal); C67.4 Malignant neoplasm of posterior wall of bladder; R59.0 Localized enlarged lymph nodes; R91.1 Solitary pulmonary nodule; I70.90 Unspecified atherosclerosis; K44.9 Diaphragmatic hernia without obstruction or gangrene | CPT/HCPCS: 71260 ==

== ENCOUNTER 2021-12-11 10:29 | Outpatient (CLI) | payer MEDICARE, BC ==
[~2021-12-11 10:29] MED LIST changes: +Iopamidol-370 76% 500 ML 1 ML ONE; -Magnevist 469MG/ML 20 ML VIAL ONE
== END 2021-12-11 10:30 | disposition home or self-care (01) ==
LOC: BICCT 10:29
PROVIDERS: ATTEND Internal Medicine Hematology & Oncology
DX: C34.81 Malignant neoplasm of overlapping sites of right bronchus and lung (principal); R91.8 Other nonspecific abnormal finding of lung field
CPT/HCPCS: 71260; 82565; Q9967

== ENCOUNTER 2021-12-11 11:05 | Outpatient (CLI) | payer MEDICARE, BC | END 2021-12-11 11:06 | disposition home or self-care (01) | LOC: BICMAMMO 11:05 | PROVIDERS: ATTEND Internal Medicine Hematology & Oncology | DX: Z12.31 Encounter for screening mammogram for malignant neoplasm of breast (principal); Z80.3 Family history of malignant neoplasm of breast | CPT/HCPCS: 77063; 77067 ==

== ENCOUNTER 2022-01-25 09:09 | Outpatient (CLI) | payer MEDICARE, BC ==
[2022-01-25 10:29] LABS: Hemoglobin 13.5 g/dL (12.0-15.5); Mean Corpuscular HGB CONC 33.5 g/dL (32.0-36.0); Mean Corpuscular Hemoglobin 30.9 pg (27.0-33.0); Mean Corpuscular Volume 92.2 fl (81.6-98.3); Mean Platelet Volume 9.3 fl (7.4-10.4); Platelet Count 260 10x3/uL (150-450); Red Blood Cell (RBC) Count 4.37 10x6/uL (3.90-5.03); White Blood Cell (WBC) Count 7.3 10x3/uL (3.5-10.5)
[2022-01-25 10:38] LABS: INR-International Normal Ratio 0.9; Prothrombin Time 10.3 sec (9.5-12.1)
[2022-01-25 10:45] LABS: Anion Gap 16 mmol/L (10-20); BUN (Urea Nitrogen) 15 mg/dL (9.8-20.1); Calc. Creatinine Clearance 0 mL/min (70-130); Calcium 9.3 mg/dL (7.8-10.44); Carbon Dioxide 24 mmol/L (23-31); Chloride 104 mmol/L (98-107); Glucose 98 mg/dL (83-110); Potassium 4.7 mmol/L (3.5-5.1); Sodium 139 mmol/L (136-145)
== END 2022-01-25 09:10 | disposition home or self-care (01) ==
LOC: LABBT 09:09
PROVIDERS: ATTEND Urology
DX: Z01.812 Encounter for preprocedural laboratory examination (principal); C67.9 Malignant neoplasm of bladder, unspecified; N13.30 Unspecified hydronephrosis; Z20.822 Contact with and (suspected) exposure to COVID-19
CPT/HCPCS: 80048; 85027; 85610; 85730; 87077; 87086; 87186; U0003; U0005

== ENCOUNTER 2022-01-30 10:01 | Day surgery (SDC) | payer MEDICARE, BC ==
[2022-01-25 12:12] VITALS: BMI 25.0
[2022-01-30] MEDS ORDERED: Levofloxacin 500 mg/D5W 100 ml Premix Bag ONE (11:24)
[2022-01-30] MEDS ORDERED: Fentanyl 100 MCG/2 ML VIAL ONE (12:35)
[2022-01-30] MEDS ORDERED: Iopamidol 30 ML ONE (12:37)
[2022-01-30] MEDS ORDERED: Furosemide 20 MG/2 ML VIAL ONE (12:48)
== END 2022-01-30 14:50 | disposition home or self-care (01) ==
LOC: SDC 10:01
PROVIDERS: ATTEND Urology
PROC: 0TBB8ZX Excision of Bladder, Via Natural or Artificial Opening Endoscopic, Diagnostic (ICD-10-PCS; principal; 2022-01-30)
PROC: 0T768DZ Dilation of Right Ureter with Intraluminal Device, Via Natural or Artificial Opening Endoscopic (ICD-10-PCS; 2022-01-30)
PROC: 0TP98DZ Removal of Intraluminal Device from Ureter, Via Natural or Artificial Opening Endoscopic (ICD-10-PCS; 2022-01-30)
DX: C67.9 Malignant neoplasm of bladder, unspecified (principal); N13.30 Unspecified hydronephrosis; K21.9 Gastro-esophageal reflux disease without esophagitis; I10 Essential (primary) hypertension; Z85.118 Personal history of other malignant neoplasm of bronchus and lung; Z79.899 Other long term (current) drug therapy; Z88.5 Allergy status to narcotic agent; Z88.8 Allergy status to other drugs, medicaments and biological substances
CPT/HCPCS: 74420; 88305; J1940; J1956; J3010; Q9967

== ENCOUNTER 2022-02-14 09:15 | Outpatient (CLI) | payer MEDICARE, BC ==
[2022-02-14 10:52] LABS: Hemoglobin 13.3 g/dL (12.0-15.5); Mean Corpuscular Hemoglobin 30.7 pg (27.0-33.0); Mean Corpuscular Volume 93.1 fl (81.6-98.3); Mean Platelet Volume 9.5 fl (7.4-10.4); Platelet Count 278 10x3/uL (150-450); RBC Distribution Width 12.8 % (11.5-14.5); Red Blood Cell (RBC) Count 4.33 10x6/uL (3.90-5.03); White Blood Cell (WBC) Count 8.3 10x3/uL (3.5-10.5)
[2022-02-14 10:54] LABS: INR-International Normal Ratio 0.9; PTT 26.4 sec (22.0-33.0); Prothrombin Time 10.3 sec (9.5-12.1)
[2022-02-14 11:00] LABS: Anion Gap 16 mmol/L (10-20); BUN (Urea Nitrogen) 18 mg/dL (9.8-20.1); Calc. Creatinine Clearance 0 mL/min (70-130); Calcium 9.3 mg/dL (7.8-10.44); Carbon Dioxide 24 mmol/L (23-31); Chloride 102 mmol/L (98-107); Estimated GFR 48; Glucose 107 mg/dL (83-110); Potassium 4.5 mmol/L (3.5-5.1); Sodium 137 mmol/L (136-145)
== END 2022-02-14 09:16 | disposition home or self-care (01) ==
LOC: LABBT 09:15
PROVIDERS: ATTEND Urology
DX: Z01.818 Encounter for other preprocedural examination (principal); C67.9 Malignant neoplasm of bladder, unspecified; N13.30 Unspecified hydronephrosis; Z20.822 Contact with and (suspected) exposure to COVID-19
CPT/HCPCS: 80048; 85027; 85610; 85730; 87086; 87811; 93005; 93010

== ENCOUNTER 2022-02-26 09:41 | Outpatient (CLI) | payer MEDICARE, BC | END 2022-02-26 09:42 | disposition home or self-care (01) | LOC: SCSMRI 09:41 | PROVIDERS: ATTEND Radiology Radiation Oncology | DX: C79.31 Secondary malignant neoplasm of brain (principal) | CPT/HCPCS: 70553 ==

== ENCOUNTER 2022-02-28 10:27 | Outpatient (CLI) | payer MEDICARE, BC ==
[2022-02-28 11:14] LABS: Hemoglobin 12.8 g/dL (12.0-15.5); Mean Corpuscular HGB CONC 33.6 g/dL (32.0-36.0); Mean Corpuscular Hemoglobin 31.1 pg (27.0-33.0); Mean Corpuscular Volume 92.5 fl (81.6-98.3); Mean Platelet Volume 9.5 fl (7.4-10.4); Platelet Count 272 10x3/uL (150-450); RBC Distribution Width 12.5 % (11.5-14.5); Red Blood Cell (RBC) Count 4.12 10x6/uL (3.90-5.03); White Blood Cell (WBC) Count 7.3 10x3/uL (3.5-10.5)
[2022-02-28 11:30] LABS: INR-International Normal Ratio 0.9; PTT 26.9 sec (22.0-33.0); Prothrombin Time 10.3 sec (9.5-12.1)
[2022-02-28 11:34] LABS: Anion Gap 15 mmol/L (10-20); BUN (Urea Nitrogen) 16 mg/dL (9.8-20.1); Calc. Creatinine Clearance 0 mL/min (70-130); Calcium 9.1 mg/dL (7.8-10.44); Carbon Dioxide 25 mmol/L (23-31); Chloride 104 mmol/L (98-107); Estimated GFR 53; Glucose 101 mg/dL (83-110); Potassium 4.7 mmol/L (3.5-5.1); Sodium 139 mmol/L (136-145)
== END 2022-02-28 10:28 | disposition home or self-care (01) ==
LOC: LABBT 10:27
PROVIDERS: ATTEND Urology
DX: Z01.812 Encounter for preprocedural laboratory examination (principal); Z20.822 Contact with and (suspected) exposure to COVID-19
CPT/HCPCS: 80048; 85027; 85610; 85730; 87077; 87086; 87186; 87811

== ENCOUNTER 2022-03-05 07:02 | Day surgery (SDC) | payer MEDICARE, BC ==
[2022-03-01 12:15] VITALS: BMI 26.6
[2022-03-05] MEDS ORDERED: fentaNYL Citrate/PF 100 MCG/2 ML SYRINGE ONE ×2 (08:42)
[2022-03-05] MEDS ORDERED: Famotidine/PF 20 mg/2ml Vial ONE (08:42)
[2022-03-05] MEDS ORDERED: SUGAMMADEX SODIUM 200 MG/2 ML VIAL ONE (08:42)
[2022-03-05] MEDS ORDERED: Levofloxacin 500 mg/D5W 100 ml Premix Bag ONE (08:47)
[2022-03-05] MEDS ORDERED: Lidocaine 1% PF 5 ML VIAL ONE (08:58)
[2022-03-05] MEDS ORDERED: PROPOFOL 200 MG/20 ML VIAL ONE (08:58)
[2022-03-05] MEDS ORDERED: Metoclopramide HCl 10 MG/2 ML VIAL ONE (08:58)
[2022-03-05] MEDS ORDERED: Phenylephrine 10 MG/ML VIAL ONE (08:58)
[2022-03-05] MEDS ORDERED: Dexamethasone 20 MG/5 ML VIAL ONE (08:58)
[2022-03-05] MEDS ORDERED: Ondansetron PF 4 MG/2 ML Vial ONE (08:58)
[2022-03-05] MEDS ORDERED: ePHEDrine 50 MG/ML VIAL ONE (08:58)
[2022-03-05] MEDS ORDERED: Iopamidol 45 ML ONE (09:16)
[2022-03-05] MEDS ORDERED: B & O ONE (10:18)
== END 2022-03-05 12:13 | disposition home or self-care (01) ==
LOC: SDC 07:02
PROVIDERS: ATTEND Urology
PROC: 0T768DZ Dilation of Right Ureter with Intraluminal Device, Via Natural or Artificial Opening Endoscopic (ICD-10-PCS; principal; 2022-03-05)
PROC: 0TP98DZ Removal of Intraluminal Device from Ureter, Via Natural or Artificial Opening Endoscopic (ICD-10-PCS; 2022-03-05)
PROC: 0TBB8ZZ Excision of Bladder, Via Natural or Artificial Opening Endoscopic (ICD-10-PCS; 2022-03-05)
DX: C67.6 Malignant neoplasm of ureteric orifice (principal); I10 Essential (primary) hypertension; Z79.899 Other long term (current) drug therapy; Z88.5 Allergy status to narcotic agent; Z88.8 Allergy status to other drugs, medicaments and biological substances
CPT/HCPCS: 52224; 52332; 74420; C2617; 88305; J1100; J1956; J2370; J2405; J2704; J2765; J3490; Q9967; S0028

== ENCOUNTER 2022-03-15 13:15 | Outpatient (CLI) | payer MEDICARE, BC | END 2022-03-15 13:16 | disposition home or self-care (01) | LOC: PET 13:15 | PROVIDERS: ATTEND Internal Medicine Hematology & Oncology | DX: C34.81 Malignant neoplasm of overlapping sites of right bronchus and lung (principal); C67.4 Malignant neoplasm of posterior wall of bladder; C77.8 Secondary and unspecified malignant neoplasm of lymph nodes of multiple regions | CPT/HCPCS: 78815; A9552 ==

== ENCOUNTER 2022-07-12 11:45 | Outpatient (CLI) | payer MEDICARE, BC | END 2022-07-12 11:46 | disposition home or self-care (01) | LOC: PET 11:45 | PROVIDERS: ATTEND Internal Medicine Hematology & Oncology | DX: C67.4 Malignant neoplasm of posterior wall of bladder (principal); C34.81 Malignant neoplasm of overlapping sites of right bronchus and lung; C77.8 Secondary and unspecified malignant neoplasm of lymph nodes of multiple regions | CPT/HCPCS: 78815; A9552 ==

== ENCOUNTER 2022-07-13 09:28 | Outpatient (CLI) | payer MEDICARE, BC | END 2022-07-13 09:29 | disposition home or self-care (01) | LOC: SCSMRI 09:28 | PROVIDERS: ATTEND Radiology Radiation Oncology | DX: C79.31 Secondary malignant neoplasm of brain (principal) | CPT/HCPCS: 70553; 82565 ==

== ENCOUNTER 2022-08-29 10:42 | Outpatient (CLI) | payer MEDICARE, BC ==
[2022-08-29 12:22] LABS: Hemoglobin 13.3 g/dL (12.0-15.5); Mean Corpuscular HGB CONC 34.2 g/dL (32.0-36.0); Mean Corpuscular Hemoglobin 31.5 pg (27.0-33.0); Mean Corpuscular Volume 92.2 fl (81.6-98.3); Mean Platelet Volume 9.4 fl (7.4-10.4); Platelet Count 311 10x3/uL (150-450); RBC Distribution Width 12.6 % (11.5-14.5); Red Blood Cell (RBC) Count 4.22 10x6/uL (3.90-5.03); White Blood Cell (WBC) Count 8.6 10x3/uL (3.5-10.5)
[2022-08-29 12:34] LABS: PTT 27.4 sec (22.0-33.0); Prothrombin Time 10.5 sec (9.5-12.1)
[2022-08-29 12:35] LABS: Anion Gap 14 mmol/L (10-20); BUN (Urea Nitrogen) 16 mg/dL (9.8-20.1); Calc. Creatinine Clearance 0 mL/min (70-130); Calcium 9.7 mg/dL (7.8-10.44); Carbon Dioxide 27 mmol/L (23-31); Chloride 100 mmol/L (98-107); Estimated GFR 56; Glucose 91 mg/dL (83-110); Potassium 4.7 mmol/L (3.5-5.1); Sodium 136 mmol/L (136-145)
== END 2022-08-29 10:43 | disposition home or self-care (01) ==
LOC: LABBT 10:42
PROVIDERS: ATTEND Urology
DX: Z01.812 Encounter for preprocedural laboratory examination (principal); C67.0 Malignant neoplasm of trigone of bladder
CPT/HCPCS: 80048; 85027; 85610; 85730; 87086

== ENCOUNTER 2022-09-03 06:59 | Day surgery (SDC) | payer MEDICARE, BC ==
[2022-08-31 10:55] VITALS: BMI 26.6
[2022-09-03] MEDS ORDERED: Levofloxacin 500 mg/D5W 100 ml Premix Bag ONE (09:05)
[2022-09-03] MEDS ORDERED: PROPOFOL 200 MG/20 ML VIAL ONE (09:29)
[2022-09-03] MEDS ORDERED: Lidocaine 1% PF 5 ML VIAL ONE (09:29)
[2022-09-03] MEDS ORDERED: Ondansetron PF 4 MG/2 ML Vial ONE (09:29)
== END 2022-09-03 12:06 | disposition home or self-care (01) ==
LOC: SDC 06:59
PROVIDERS: ATTEND Urology
PROC: 0TP98DZ Removal of Intraluminal Device from Ureter, Via Natural or Artificial Opening Endoscopic (ICD-10-PCS; principal; 2022-09-03)
PROC: 0T768DZ Dilation of Right Ureter with Intraluminal Device, Via Natural or Artificial Opening Endoscopic (ICD-10-PCS; 2022-09-03)
DX: Z46.6 Encounter for fitting and adjustment of urinary device (principal); N13.1 Hydronephrosis with ureteral stricture, not elsewhere classified; C67.0 Malignant neoplasm of trigone of bladder; I10 Essential (primary) hypertension; K21.9 Gastro-esophageal reflux disease without esophagitis; Z79.899 Other long term (current) drug therapy; Z88.5 Allergy status to narcotic agent; Z88.8 Allergy status to other drugs, medicaments and biological substances
CPT/HCPCS: 74420; C2617; J1956; J2405; J2704

== ENCOUNTER 2022-09-26 09:30 | Outpatient (CLI) | payer MEDICARE, BC | END 2022-09-26 09:31 | disposition home or self-care (01) | LOC: PET 09:30 | PROVIDERS: ATTEND Internal Medicine Hematology & Oncology | DX: C34.81 Malignant neoplasm of overlapping sites of right bronchus and lung (principal); C67.4 Malignant neoplasm of posterior wall of bladder; C77.0 Secondary and unspecified malignant neoplasm of lymph nodes of head, face and neck | CPT/HCPCS: 78815; A9552 ==

== ENCOUNTER 2022-10-01 11:28 | Outpatient (CLI) | payer MEDICARE, BC | END 2022-10-01 11:29 | disposition home or self-care (01) | LOC: SCSMRI 11:28 | PROVIDERS: ATTEND Internal Medicine Hematology & Oncology | DX: C34.81 Malignant neoplasm of overlapping sites of right bronchus and lung (principal); C79.31 Secondary malignant neoplasm of brain; C67.4 Malignant neoplasm of posterior wall of bladder; C77.0 Secondary and unspecified malignant neoplasm of lymph nodes of head, face and neck; R90.89 Other abnormal findings on diagnostic imaging of central nervous system; Z79.899 Other long term (current) drug therapy | CPT/HCPCS: 70553 ==

== ENCOUNTER 2022-10-02 10:09 | Outpatient (CLI) | payer MEDICARE, BC ==
[2022-10-02 11:07] LABS: #Eosinphils 0.4 10x3/uL (0.0-0.5); #Monocytes 0.8 10x3/uL (0.0-1.1); #Neutrophils 5.5 10x3/uL (1.5-8.4); %Basophils 0.5 % (0.0-2.0); %Eosinophils 4.2 % (0.0-6.0); %Lymphocytes 20.2 % (18.0-47.0); %Monocytes 9.3 % (0.0-10.0); %Neutrophils 65.6 % (40.0-75.0); Mean Corpuscular HGB CONC 33.4 g/dL (32.0-36.0); Mean Corpuscular Hemoglobin 30.4 pg (27.0-33.0); Mean Corpuscular Volume 91.1 fl (81.6-98.3); Mean Platelet Volume 9.1 fl (7.4-10.4); Platelet Count 348 10x3/uL (150-450); RBC Distribution Width 12.5 % (11.5-14.5); Red Blood Cell (RBC) Count 4.27 10x6/uL (3.90-5.03); White Blood Cell (WBC) Count 8.3 10x3/uL (3.5-10.5)
[2022-10-02 11:48] LABS: Anion Gap 15 mmol/L (10-20); BUN (Urea Nitrogen) 13 mg/dL (9.8-20.1); Calc. Creatinine Clearance 0 mL/min (70-130); Calcium 9.1 mg/dL (7.8-10.44); Carbon Dioxide 24 mmol/L (23-31); Chloride 102 mmol/L (98-107); Estimated GFR 58; Glucose 91 mg/dL (83-110); Potassium 4.4 mmol/L (3.5-5.1); Sodium 137 mmol/L (136-145)
== END 2022-10-02 10:10 | disposition home or self-care (01) ==
LOC: LABBT 10:09
PROVIDERS: ATTEND Surgery
DX: Z01.812 Encounter for preprocedural laboratory examination (principal); C34.90 Malignant neoplasm of unspecified part of unspecified bronchus or lung; C77.0 Secondary and unspecified malignant neoplasm of lymph nodes of head, face and neck
CPT/HCPCS: 80048; 85025

== ENCOUNTER 2022-10-04 08:54 | Day surgery (SDC) | payer MEDICARE, BC ==
[2022-10-03 11:36] VITALS: BMI 24.2
[2022-10-04] MEDS ORDERED: Famotidine/PF 20 mg/2ml Vial ONE (10:38)
[2022-10-04] MEDS ORDERED: Bupivacaine/Epinephrine 0.25% 30 ML VIAL ONE (11:27)
[2022-10-04] MEDS ORDERED: Lidocaine 2% PF 5 ML VIAL ONE (11:27)
[2022-10-04] MEDS ORDERED: Midazolam HCl 2 mg/2 ml Vial ONE (11:29)
[2022-10-04] MEDS ORDERED: PROPOFOL 40 ML ONE (11:29)
[2022-10-04] MEDS ORDERED: fentaNYL PF 100 MCG/2 ML SYRINGE ONE (11:29)
[2022-10-04] MEDS ORDERED: CEFAZOLIN 2 GM VIAL ONE (11:32)
[2022-10-04] MEDS ORDERED: Sodium Chloride 0.9% 100 ML ONE (11:32)
== END 2022-10-04 14:20 | disposition home or self-care (01) ==
LOC: SDC 08:54
PROVIDERS: ATTEND Surgery
PROC: 0JH60WZ Insertion of Totally Implantable Vascular Access Device into Chest Subcutaneous Tissue and Fascia, Open Approach (ICD-10-PCS; principal; 2022-10-04)
PROC: 02HV33Z Insertion of Infusion Device into Superior Vena Cava, Percutaneous Approach (ICD-10-PCS; 2022-10-04)
DX: C34.81 Malignant neoplasm of overlapping sites of right bronchus and lung (principal); C77.0 Secondary and unspecified malignant neoplasm of lymph nodes of head, face and neck; I25.10 Atherosclerotic heart disease of native coronary artery without angina pectoris; M19.90 Unspecified osteoarthritis, unspecified site; Z79.899 Other long term (current) drug therapy; Z88.5 Allergy status to narcotic agent; Z88.8 Allergy status to other drugs, medicaments and biological substances
CPT/HCPCS: 36561; 71045; C1788; J1642; J2001; J2250; J2704; J3490; S0028

== ENCOUNTER 2022-11-15 09:30 | Outpatient (CLI) | payer MEDICARE, BC | END 2022-11-15 09:31 | disposition home or self-care (01) | LOC: PET 09:30 | PROVIDERS: ATTEND Internal Medicine Hematology & Oncology | DX: C34.81 Malignant neoplasm of overlapping sites of right bronchus and lung (principal); C77.0 Secondary and unspecified malignant neoplasm of lymph nodes of head, face and neck; C67.4 Malignant neoplasm of posterior wall of bladder | CPT/HCPCS: 78815; A9552 ==

== ENCOUNTER 2022-11-26 08:31 | Outpatient (CLI) | payer MEDICARE, BC | END 2022-11-26 08:32 | disposition home or self-care (01) | LOC: SCSMRI 08:31 | PROVIDERS: ATTEND Radiology Radiation Oncology | DX: C79.31 Secondary malignant neoplasm of brain (principal); C78.00 Secondary malignant neoplasm of unspecified lung; C79.11 Secondary malignant neoplasm of bladder | CPT/HCPCS: 70553 ==